=== PATIENT | female | born 1975 | race Caucasian/White ===

== ENCOUNTER 2017-07-22 16:19 | Inpatient (IN) ==
[2017-07-22] MEDS ORDERED: Vancomycin 1,500 MG in D5% in Water 250 ML IVPB ONE (18:04)
[2017-07-22] MEDS ORDERED: 0.9 % Sodium Chloride 1,000 ML IVC ONE ×2 (18:04→21:06)
--- NOTE | 2017-07-22 18:14 | Emergency Department Note ---
Disposition Clinical Impression: Cellulitis Qualifiers: Site of cellulitis: extremity Site of cellulitis of extremity: lower extremity Laterality: right Qualified Code(s): L03.115 - Cellulitis of right lower limb Disposition: Still a Patient Condition: Good Referrals: Merry Desouza MD [Primary Care Provider] - Forms: ED Satisfaction Letter Time of Disposition: 18:45 General Adult HPI - General Chief complaint: ED Extremity Injury, Lower Stated complaint: cellulitis, R/O DVT Time Seen by Provider: 07/22/17 17:03 Source: patient, other Limitations: other Nursing Notes Reviewed: Yes Vital Signs Reviewed: Yes - History of Present Illness HPI Narrative: 42 [facility] old female from [facility] presntes the ED with her client renewal specialist for complaints o RLE redness, swelling and pain. PAtient states that she twsited her ankle about 3 days ago and that the redenss started then. She is a poor historian due to her history of MRDD. [place] client renewal specialist and the notes at bedside states that she was most recently on keflex therapy for her rigth ankel swelling and cellulitis and it is getting worse and not better. Jerald has been sent to the ED for rule out DVT. 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 Jerald states there is pain when she bears weight. No loss of motor/senosry function. limited range of motion due to pain Pain Scale: 0 - Related Data Allergies Allergy/AdvReac Type Severity Reaction Status Date / Time No Known Allergies Allergy Verified 07/22/17 16:33 Review of Systems: given by client renewal specialist and notes given to client renewal specialist from [facility] Constitutional: Denies: fever, chills, weakness, weight change Eyes: Denies: eye pain, eye discharge, vision change ENT ED: Denies: ear pain, throat pain, dental pain, hearing loss, epistaxis, congestion, dysphagia Cardiovascular: Denies: chest pain, palpitations, dyspnea on exertion, edema, syncope Respiratory: Denies: cough, dyspnea, wheezes, hemoptysis, stridor Gastrointestinal: Denies: abdominal pain, nausea, vomiting, diarrhea, constipation, hematemesis, melena, hematochezia Genitourinary: Denies: dysuria, frequency, hematuria, discharge Musculoskeletal: Reports: other (right ankle pain). Denies: back pain, neck pain, arthralgia, myalgia Integumentary: Reports: rash. Denies: abrasion, lesions Neurological: Denies: headache, weakness, numbness, paresthesias, confusion, abnormal gait, vertigo Psychiatric: Denies: anxiety, depression, suicidal thoughts, homicidal thoughts , auditory hallucinations, visual hallucinations Endocrine: Denies: fatigue Hematological/Lymphatic: Denies: easy bleeding, easy bruising Allergic/Immunologic: Denies: facial swelling, urticaria Past Medical History - Past Medical History Medical history: Reports: non-contributory - Social History Smoking Status: Never smoker Alcohol use: Reports: none Drug use: Reports: none Physical Exam - General Limitations: other General appearance: in no apparent distress - Head Head exam: atraumatic, normocephalic, normal inspection - Eye Eye exam: Present: normal appearance, PERRL, EOMI - Expanded Eye Exam Pupils: Left: reactive - ENT ENT exam: normal exam, normal oropharynx, mucous membranes moist - Expanded ENT Exam External ear exam: Present: normal external inspection Mouth exam: Present: normal external inspection Teeth exam: Present: normal inspection Throat exam: Present: normal inspection - Neck Neck exam: Present: normal inspection, full ROM, trachea midline - Chest Chest inspection: Present: normal inspection, symmetric chest wall rise - Respiratory Respiratory exam: Present: normal lung sounds bilaterally - Cardiovascular Cardiovascular exam: Present: regular rate, normal rhythm, normal heart sounds - Abdominal Exam Abdominal exam: Present: soft, Non-Tender. Absent: tenderness, distention, guarding, rebound, rigidity - Female External Exam: Absent: normal external exam - Extremities Exam Extremities exam: Present: normal inspection, full ROM. Absent: tenderness, pedal edema - Expanded Upper Extremity Exam Shoulder exam: Present: normal inspection, full ROM Arm exam: Present: normal inspection, full ROM Elbow exam: Present: normal inspection, full ROM Forearm/Wrist exam: Present: normal inspection, full ROM Hand exam: Present: normal inspection, full ROM Vascular exam: Normal: capillary refill, radial pulse - Expanded Lower Extremity Exam Hip/Pelvis exam: Present: normal inspection, full ROM Upper leg exam: Present: normal inspection, full ROM Knee exam: Present: normal inspection, full ROM Lower leg exam: Present: normal inspection, full ROM Ankle exam: Present: tenderness, swelling, erythema. Absent: normal inspection , full ROM 1 - riaght ankle with mild swelling and increased erythematous changes, no flunctuant pockets or increased pain with movment of achiles tendon, appears like cellultis. (-) Homans sign 2 - riaght ankle with mild swelling and increased erythematous changes, no flunctuant pockets or increased pain with movment of achiles tendon, appears like cellultis. (-) Homans sign Foot/toe exam: Present: normal inspection, full ROM Neurovascular/Tendon exam: Absent: motor deficit, sensory deficit, tendon deficit - Back Exam Back exam: Present: normal inspection, full ROM. Absent: tenderness - Neurological Exam Neurological exam: Present: alert, oriented X3 - Expanded Neurological Exam Patient oriented to: Present: person, place, time Coma Scale Eye Opening: Spontaneous Coma Scale Motor Response: Obeys Commands Coma Scale Verbal Response: Oriented Coma Scale Total: 15 - Psychiatric Psychiatric exam: Present: normal affect, normal mood - Skin Skin exam: Present: warm, dry, intact, normal color Course Course Narrative: we will do the DVT study although my suspicion for DVT is low. More likely this is outpatinet failed therapy cellulitis and will need admission to the hospital for IX ABX. I have started IV Vancomycin at this time and baseline lab work - Reevaluation(s) Reevaluation #1: will sign out patine to night team (Kareen) she will need to be admitted to medicine for cellulitis if DVT study is negative. anticoagulation therapy with cellultis admission if DVT is (+). Time: 18:45 Vital Signs Temperature 98.7 F 07/22/17 16:30 Pulse Rate 99 07/22/17 16:30 Respiratory Rate 18 07/22/17 16:30 Blood Pressure 147/88 07/22/17 16:30 O2 Sat by Pulse Oximetry 100 07/22/17 16:30 Temperature 98.7 F 07/22/17 16:30 Pulse Rate 99 07/22/17 16:30 Respiratory Rate 18 07/22/17 16:30 Blood Pressure 147/88 07/22/17 16:30 O2 Sat by Pulse Oximetry 100 07/22/17 16:30 Oxygen Delivery Oxygen Delivery Room Air
--- NOTE | 2017-07-22 19:46 | Emergency Department Note ---
Disposition Clinical Impression: Leg swelling Cellulitis Qualifiers: Site of cellulitis: extremity Site of cellulitis of extremity: lower extremity Laterality: right Qualified Code(s): L03.115 - Cellulitis of right lower limb Fracture of proximal phalanx of great toe Qualifiers: Encounter type: initial encounter Fracture type: closed Fracture alignment: nondisplaced Laterality: right Qualified Code(s): S92.414A - Nondisplaced fracture of proximal phalanx of right great toe, initial encounter for closed fracture Disposition: Admitted As Inpatient Condition: Good Referrals: Merry Desouza MD [Primary Care Provider] - Forms: ED Satisfaction Letter Time of Disposition: 20:36 Lower Extremity Injury HPI - General Chief Complaint: ED Extremity Injury, Lower Stated Complaint: cellulitis, R/O DVT Time Seen by Provider: 07/22/17 17:03 Source: patient, other Limitations: other - Related Data Home Medications Medication Instructions Recorded Confirmed Acetaminophen [Tylenol] 650 mg PO Q4H PRN 07/22/17 07/22/17 Acetylcysteine 600 mg PO TID 07/22/17 07/22/17 [H-Dhcioi-a-Cysteine] Cholecalciferol (Vitamin D3) 5,000 unit PO BID 07/22/17 07/22/17 [Vitamin D3] Ibuprofen [Motrin] 400 mg PO Q4H PRN 07/22/17 07/22/17 LORazepam [Ativan] 1.5 mg PO 0800,1400,199907/22/17 07/22/17 Lactulose 20 gm PO QAM 07/22/17 07/22/17 LevETIRAcetam [Keppra] 1,000 mg PO BID 07/22/17 07/22/17 LevETIRAcetam [Keppra] 500 mg PO HS 07/22/17 07/22/17 Levocarnitine [Carnitor] 990 mg PO TID 07/22/17 07/22/17 Levothyroxine [Synthroid] 125 mcg PO QAM 07/22/17 07/22/17 Loperamide HCl [Anti-Diarrheal] 2 mg PO PER PKG DI PRN MDD 10 mg 07/22/17 Loxapine Succinate [Loxapine] 50 mg PO QAM 07/22/17 07/22/17 Loxapine Succinate [Loxapine] 100 mg PO QPM 07/22/17 07/22/17 Mag Hydrox/Al Hydrox/Simeth 30 ml PO Q4H PRN 07/22/17 07/22/17 [Antacid Suspension] Magnesium Hydroxide [Milk of 2,400 mg PO Q72H PRN 07/22/17 07/22/17 Magnesia] Multivitamin [Multi-Day Vitamins] 1 each PO DAILY 07/22/17 07/22/17 Sertraline [Zoloft] 200 mg PO QAM 07/22/17 07/22/17 Valproic Acid Oral Soln [Depakene 1,500 mg PO BID 07/22/17 07/22/17 Oral Soln] carBAMazepine [Tegretol] 200 mg PO HS 07/22/17 07/22/17 carBAMazepine [Tegretol] 400 mg PO BID 07/22/17 07/22/17 Allergies Allergy/AdvReac Type Severity Reaction Status Date / Time No Known Allergies Allergy Verified 07/22/17 16:33 Constitutional: Denies: fever, chills, weakness, weight change Eyes: Denies: eye pain, eye discharge, vision change ENT ED: Denies: ear pain, throat pain, dental pain, hearing loss, epistaxis, congestion, dysphagia Cardiovascular: Denies: chest pain, palpitations, dyspnea on exertion, edema, syncope Respiratory: Denies: cough, dyspnea, wheezes, hemoptysis, stridor Gastrointestinal: Denies: abdominal pain, nausea, vomiting, diarrhea, constipation, hematemesis, melena, hematochezia Genitourinary: Denies: dysuria, frequency, hematuria, discharge Musculoskeletal: Reports: other (right ankle pain). Denies: back pain, neck pain, arthralgia, myalgia Integumentary: Reports: rash. Denies: abrasion, lesions Neurological: Denies: headache, weakness, numbness, paresthesias, confusion, abnormal gait, vertigo Psychiatric: Denies: anxiety, depression, suicidal thoughts, homicidal thoughts , auditory hallucinations, visual hallucinations Endocrine: Denies: fatigue Hematological/Lymphatic: Denies: easy bleeding, easy bruising Allergic/Immunologic: Denies: facial swelling, urticaria Past Medical History - Past Medical History Medical history: Reports: non-contributory - Social History Smoking Status: Never smoker Alcohol use: Reports: none Drug use: Reports: none Physical Exam - General Limitations: other General appearance: in no apparent distress Course Course Narrative: Patient seen and examined the time of arrival to my shift. Patient was signed out by the daytime physician Dr. Shira Gauthier. Detailed review the presentation symptoms medical intervention and history were discussed in detail. She is currently in a group on secondary to MRDD. Patient has lower extremity swelling and redness concerning for superficial cellulitis or erysipelas. [place] Ashley has history of picking at her skin. She also rolled her ankle. Imaging of the ankle is negative with bruising noted in the foot and toe. Imaging of the right foot be added on. Labs including CBC chemistry lactic acid ordered. First dose of IV vancomycin be given for failed outpatient treatment of cellulitis. DVT study is still pending. Otherwise patient's vital signs are stable no other acute pathology. Lungs are clear heart is regular abdomen is soft patient is nontoxic in presentation speaking in full sentences with no other visible signs of trauma or injury. Admission process will be completed once workup is resulted - Reevaluation(s) Reevaluation #1: DVT study is negative. Patient has uncomplicated cellulitis that failed outpatient management. Because of her mental status as well as a failed outpatient treatment admission process will be completed. Hospitalist paged at this time Time: 20:20 Reevaluation #2: Patient discussed with the hospitalist Dr. macdonald. Detailed review the presentation symptoms medical history and findings on x-ray imaging including a nondisplaced fracture were discussed. Requested to have patient start on Zosyn and to have podiatry consult. Dr. Schwab sessions via phone and recommended nonweightbearing and a postsurgical shoe and outpatient evaluation if needed. No other concerns or issues noted. Patient observed in emergency room until admission process is completed. Time: 21:14 Vital Signs Temperature 98.7 F 07/22/17 16:30 Pulse Rate 99 07/22/17 16:30 Respiratory Rate 18 07/22/17 16:30 Blood Pressure 147/88 07/22/17 16:30 O2 Sat by Pulse Oximetry 100 07/22/17 16:30 Temperature 98.7 F 07/22/17 16:30 Pulse Rate 99 07/22/17 16:30 Respiratory Rate 18 07/22/17 16:30 Blood Pressure 147/88 07/22/17 16:30 O2 Sat by Pulse Oximetry 100 07/22/17 16:30 Oxygen Delivery Oxygen Delivery Room Air Extremity Injury, Lower - MDM Narrative Medical decision making narrative: Cellulitis - Medical Records Medical records reviewed: Yes I reviewed the patient's medical records. - Lab Data Lab results reviewed: Yes I reviewed the patient's lab results. - Radiology Data Radiology results reviewed: Yes I reviewed the patient's radiology results. Imaging of the right ankle and right foot are negative for acute pathology DVT study is negative.
[2017-07-22 19:47] LABS: Basophils % 0.4 %; Eosinophils # 0.4 K/mcL (0.0-0.6); Eosinophils % 4.7 %; Hematocrit 36.1 % (35.3-44.9); Hemoglobin 11.4 g/dL (11.5-15.4); Immature Granulocytes % 0.4 % (0-4); Lymphocytes % 26.1 %; Mean Corpuscular HGB Conc 31.6 g/dL (31.6-35.5); Mean Corpuscular Hemoglobin 29.8 pg (28.0-33.3); Mean Corpuscular Volume 94.3 fL (83.0-100.0); Mean Platelet Volume 12.5 fL (9.4-12.4); Monocytes % 12.8 %; Neutrophils # 4.3 K/mcL (1.6-8.9); Platelet Count 174 K/mcL (140-400); Red Blood Count 3.83 M/mcL (3.82-4.97); Red Cell Distribution Width 13.7 % (11.5-14.5); Segmented Neutrophils % 55.6 %
[2017-07-22 20:02] LABS: Alanine Aminotransferase 524 Units/L (0-55); Albumin 2.9 g/dL (3.5-5.0); Albumin/Globulin Ratio 0.8 (1.1-2.2); Alkaline Phosphatase 88 Units/L (38-126); Aspartate Amino Transferase 236 Units/L (5-34); BUN/Creatinine Ratio 30 (6-26); Blood Urea Nitrogen 19 mg/dL (7-20); Calcium 8.8 mg/dL (8.6-10.8); Carbon Dioxide 27 mEq/L (19-29); Chloride 104 mEq/L (98-109); Globulin 3.5 g/dL (2.4-3.5); Glucose 128 mg/dL (70-99); Osmolality,Calculated 296 (280-300); Potassium 4.1 mEq/L (3.5-4.5); Sodium 141 mEq/L (136-145); Total Protein 6.4 g/dL (6.0-8.3); eGFR For African Americans > 60 (> 60); eGFR For Non-African Americans > 60 (> 60)
[2017-07-22 20:03] LABS: Bilirubin,Total < 0.2 mg/dL (0.2-1.2)
[2017-07-22] MEDS ORDERED: Piperacillin/Tazobactam 3.375 GM in D5% in Water (Mini-Bag+) 100 ML IVPB ONE (21:06)
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
[2017-07-22] MEDS ORDERED: Ondansetron 4 MG/2 ML VIAL IVP PRN (22:35)
[2017-07-22] MEDS ORDERED: Naloxone 0.4 MG/ML INJ IVP PRN (22:35)
[2017-07-22] MEDS ORDERED: MOM Conc 10 ML UD.LIQ PO PRN ×2 (22:45)
[2017-07-22] MEDS ORDERED: Vancomycin 1,500 MG in D5% in Water 250 ML IVPB SCH (23:00)
[2017-07-22] MEDS ORDERED: *HR* Morphine 2 MG/ML SYRINGE IVP PRN (23:09)
[2017-07-23] MEDS: 0.9 % Sodium Chloride 1,000 ML IVC SCH ×2 (00:22→06:50)
[2017-07-23] MEDS: carBAMazepine 200 MG TABLET PO SCH ×3 (00:26→22:10)
[2017-07-23 01:20] LABS: Basophils % 0.3 %; Eosinophils # 0.3 K/mcL (0.0-0.6); Eosinophils % 4.2 %; Hematocrit 34.8 % (35.3-44.9); Hemoglobin 11.1 g/dL (11.5-15.4); Immature Granulocytes % 0.6 % (0-4); Immature Platelets 9.8 % (1.1-6.1); Lymphocytes # 2.4 K/mcL (0.6-4.6); Lymphocytes % 35.1 %; Mean Corpuscular HGB Conc 31.9 g/dL (31.6-35.5); Mean Corpuscular Hemoglobin 29.8 pg (28.0-33.3); Mean Corpuscular Volume 93.5 fL (83.0-100.0); Mean Platelet Volume 12.3 fL (9.4-12.4); Monocytes % 13.9 %; Neutrophils # 3.1 K/mcL (1.6-8.9); Platelet Count 173 K/mcL (140-400); Red Blood Count 3.72 M/mcL (3.82-4.97); Red Cell Distribution Width 13.7 % (11.5-14.5); Segmented Neutrophils % 45.9 %
[2017-07-23 01:28] LABS: INR 1.1; Prothrombin Time 12.1 Seconds (9.4-12.1)
[2017-07-23 01:34] LABS: Alanine Aminotransferase 437 Units/L (0-55); Albumin 2.8 g/dL (3.5-5.0); Albumin/Globulin Ratio 0.9 (1.1-2.2); Alkaline Phosphatase 80 Units/L (38-126); Aspartate Amino Transferase 164 Units/L (5-34); BUN/Creatinine Ratio 27 (6-26); Bilirubin,Total 0.2 mg/dL (0.2-1.2); Blood Urea Nitrogen 16 mg/dL (7-20); Calcium 8.3 mg/dL (8.6-10.8); Carbon Dioxide 27 mEq/L (19-29); Chloride 104 mEq/L (98-109); Globulin 3.2 g/dL (2.4-3.5); Glucose 111 mg/dL (70-99); Osmolality,Calculated 286 (280-300); Potassium 4.4 mEq/L (3.5-4.5); Sodium 137 mEq/L (136-145); eGFR For African Americans > 60 (> 60); eGFR For Non-African Americans > 60 (> 60)
[2017-07-23] MEDS: Ibuprofen 400 MG TABLET PO SCH ×4 (01:56→18:26)
[2017-07-23] MEDS ORDERED: levETIRAcetam 250 MG TABLET PO SCH (02:00)
[2017-07-23 06:17] LABS: INR 1.1; Prothrombin Time 12.1 Seconds (9.4-12.1)
[2017-07-23] MEDS: Famotidine 20 MG/2 ML VIAL IVP SCH ×2 (06:36→18:26)
[2017-07-23] MEDS: Piperacillin/Tazobactam 3.375 GM in D5% in Water (Mini-Bag+) 100 ML IVPB SCH ×3 (06:38→21:45)
[2017-07-23] MEDS: levETIRAcetam 250 MG TABLET PO SCH ×4 (06:38→20:27)
[2017-07-23] MEDS: *HR* Heparin 5,000 UNIT/ML VIAL SQ SCH ×3 (06:38→20:24)
[2017-07-23 06:44] LABS: Hemoglobin A1C 5.4 %
[2017-07-23] MEDS ORDERED: Mag Hydrox/Al Hydrox/Simeth 30 ML UDC PO PRN (06:45)
[2017-07-23] MEDS: Vancomycin 1,500 MG in D5% in Water 250 ML IVPB SCH ×2 (08:20→18:26)
[2017-07-23] MEDS: Multivit/Ca/Min/Fe/FA 1 TAB TABLET PO SCH (08:33)
[2017-07-23] MEDS: Valproic Acid Oral Soln 250 MG/5 ML UDC PO SCH ×2 (08:34→21:46)
[2017-07-23] MEDS: *HR* LORazepam 1 MG TABLET PO SCH ×3 (08:36→20:25)
[2017-07-23] MEDS: LOXAPINE SUCCINATE 50 MG PO SCH (08:42)
[2017-07-23] MEDS ORDERED: Sulfamethoxazole/Trimeth DS 1 EACH TABLET PO SCH (09:30)
[2017-07-23 11:27] LABS: Hepatitis A Antibody IgM Nonreactive (Nonreactive); Hepatitis B Core IgM Nonreactive (Nonreactive); Hepatitis B Surface Antigen Nonreactive (Nonreactive); Hepatitis C Virus Antibody Nonreactive (Nonreactive)
[2017-07-23] MEDS: *HR* Acetylcysteine 20% 600 MG/3 ML ORAL SYRINGE PO SCH ×3 (11:50→21:46)
--- NOTE | 2017-07-23 13:06 | Venous Imaging Report ---
LE Venous Duplex Patient Name:Ashley Dewitt Order Number:[id number] Procedure Date:07/22/2017 Date:1975Age:42 yrs Gender:Female Location:[facility] ED Room #: ER5 Warp Placer:Sarahy Mayen RDCS Referring MD:Shira Gauthier DO Reading MD:Harshil Tovar MD Primary Indications:r/o DVT Secondary Indications: Impressions: Right lower extremity: normal superficial and deep exam. Recommendations: After imaging the patient returned to their room. Gave vascular preliminary results to Dr. Noriega in emergency department on 07/22/2017 at 20:05. Test completed on 07/22/2017 at 7:56:00 pm. Findings Venous Duplex Results: Right: Venous imaging of the lower extremity reveals full patency and normal vessel compressibility of the right distal iliac, right common femoral, right superficial femoral, right popliteal, right posterior tibial, right peroneal, right great saphenous and right lesser saphenous. Doppler signals in the evaluated veins were normal. Left: Venous imaging of the lower extremity reveals full patency and normal vessel compressibility of the left common femoral. Doppler signals in the evaluated veins were normal. Prior Study: No prior study available for comparison. Lower Extremity Venous Duplex Side Vein Compress Spontaneous Flow Augment Diameter (cm) Depth (cm) Right Distal Iliac Normal Yes Phasic Yes Right Common Femoral Normal Yes Phasic Yes Right Superficial Femoral Normal Yes Phasic Yes Right Popliteal Normal Yes Phasic Yes Right Posterior Tibial Normal Yes Phasic Yes Right Peroneal Normal Yes Phasic Yes Right Great Saphenous Normal Yes Phasic Yes Right Lesser Saphenous Normal Yes Phasic Yes Left Common Femoral Normal Yes Phasic Yes Updated by Harshil Tovar MD on 07/23/2017 1:00:08 PM electronically signed on 07/23/2017 1:00:19 PM with status of Final
--- NOTE | 2017-07-23 15:45 | Podiatry Consult Note ---
Date of Encounter: 07/23/17 Time of Encounter: 12:30 Assessment and Plan (1) Cellulitis Current visit: Yes Status: Acute Assessment: Cellulitis of right lower extremity Plan: There is no obvious entry point or open ulceration Cellulitis area is marked does not extend into or across joint space of fractured toe therefore there is limited suspicion that there is a direct relation of the cellullitis to the fracture There are small ulcerations noted to mid calf which are draining a scant serous fluid, but these likely came after edema started Continue antibiotic therapy Please apply adaptic to small ulcerated areas of calf, 4x4 and wrap leg with SHANA for compression. Elevate when patient allows We will continue to follow if any further issues arise At this time, we can follow her toe fracture on a outpatient basis- patient is non compliant with non weight bearing - so will order a post operative shoe and allow ambulation. Qualifiers: Site of cellulitis: extremity Site of cellulitis of extremity: lower extremity Laterality: right Qualified Code(s): L03.115 - Cellulitis of right lower limb (2) Fracture of proximal phalanx of great toe Current visit: Yes Status: Acute Qualifiers: Encounter type: initial encounter Fracture type: closed Fracture alignment: nondisplaced Laterality: right Qualified Code(s): S92.414A - Nondisplaced fracture of proximal phalanx of right great toe, initial encounter for closed fracture History of Present Illness HPI: Ms. Dewitt is a 42 year old female from a nursing home with a PMH of MRDD, seizure disorder, hypothyroidism. Patient presented to [facility] with complaints of RLE right foot pain, redness, and swelling for the past 3 days. She recently took Keflex for right foot cellulitis however it has worsened. There is also a non displaced fracture of the right great toe. Patient is a poor historian. She reports that "a ghost broke her toe and grinded the ankle" she is unsure when the toe was broken and unsure of when the redness to her leg started. Patient denies any n/v/fls. Patient was admitted and started on IV antibiotic therapy. Ankle X-Ray 07/22/17 18:02 IMPRESSION: No acute osseous abnormality of the right ankle. D/ / Ketan Nicolas MD / Ketan Nicolas MD Interpreting Provider: Ketan Nicolas MD Foot X-Ray 07/22/17 19:48 IMPRESSION: 1. Acute, nondisplaced intra-articular fracture through the base of the proximal phalanx of the 1st toe. 2. Diffuse soft tissue edema most pronounced dorsally. D/ / Phillip Almazan MD / Phillip Almazan MD Interpreting Provider: Phillip Almazan MD Past Med Surg Social Fam HX - Past Medical History Medical history: non-contributory, seizures Psychiatric history: bipolar, schizophrenia, other (MRDD) - Past Surgical History Surgical History: other (brain) - Social History Smoking Status: Never smoker Smokeless Tobacco Status: Yes Alcohol use: none Drug use: none Medications and Allergies Acetaminophen [Tylenol] 650 mg PO Q4H PRN 07/22/17 [History] Acetylcysteine [C-Mocdxh-j-Cysteine] 600 mg PO TID 07/22/17 [History] Cholecalciferol (Vitamin D3) [Vitamin D3] 5,000 unit PO BID 07/22/17 [History] Ibuprofen [Motrin] 400 mg PO Q4H PRN 07/22/17 [History] LORazepam [Ativan] 1.5 mg PO 0800,1400,2000 07/22/17 [History] Lactulose 20 gm PO QAM 07/22/17 [History] LevETIRAcetam [Keppra] 1,000 mg PO BID 07/22/17 [History] LevETIRAcetam [Keppra] 500 mg PO HS 07/22/17 [History] Levocarnitine [Carnitor] 990 mg PO TID 07/22/17 [History] Levothyroxine [Synthroid] 125 mcg PO QAM 07/22/17 [History] Loperamide HCl [Anti-Diarrheal] 2 mg PO PER PKG DI PRN MDD 10 mg 07/22/17 [ History] Loxapine Succinate [Loxapine] 50 mg PO QAM 07/22/17 [History] Loxapine Succinate [Loxapine] 100 mg PO QPM 07/22/17 [History] Mag Hydrox/Al Hydrox/Simeth [Antacid Suspension] 30 ml PO Q4H PRN 07/22/17 [ History] Magnesium Hydroxide [Milk of Magnesia] 2,400 mg PO Q72H PRN 07/22/17 [History] Multivitamin [Multi-Day Vitamins] 1 each PO DAILY 07/22/17 [History] Sertraline [Zoloft] 200 mg PO QAM 07/22/17 [History] Valproic Acid Oral Soln [Depakene Oral Soln] 1,500 mg PO BID 07/22/17 [History] carBAMazepine [Tegretol] 200 mg PO HS 07/22/17 [History] carBAMazepine [Tegretol] 400 mg PO BID 07/22/17 [History] 3 Allergy/AdvReac Type Severity Reaction Status Date / Time No Known Allergies Allergy Verified 07/22/17 16:33 All Systems Reviewed: A 10-system review of systems was performed and is negative for pertinent findings except as documented above in the HPI. Physical Exam - Constitutional Vitals: Temp Pulse Resp BP Pulse Ox 98.2 F 86 16 131/83 95 07/23/17 07:34 07/23/17 07:34 07/23/17 07:34 07/23/17 07:34 07/23/17 07:34 Exam: General Examination: CONSTITUTIONAL: Alert, disoriented conversation. EXTREMITIES: CFT 3 seconds all toes. Toes are pallored bilaterally however there is warmth to toes and palpable pulses Edema +2 right +1 left and pedal pulses palpable DP/PT SKIN: Marked erythema and edema of the right lower extremity.. Has not progressed past the original markings. There are small areas of serous drainage noted to calf of right leg. These findings are consistent with cellulitis. NEUROLOGIC: Intact sensation to light touch MUSCULOSKELETAL: X-ray shows evidence of a nondisplaced closed fracture of the right great toe. There is a linear pattern of ecchymosis across the IP joint of the right great toe. There is no erythema or edema surrounding the toe or joint space. There is no pain to palpation. There is no limited range of motion of the toe. Free ROM at MTP joint. Results - Labs Result Diagrams: 07/23/17 01:12 07/23/17 01:12 Labs: Abnormal lab results RBC 3.72 M/mcL (3.82-4.97) L 07/23/17 01:12 Hgb 11.1 g/dL (11.5-15.4) L 07/23/17 01:12 Hct 34.8 % (35.3-44.9) L 07/23/17 01:12 Immature Plt Fraction 9.8 % (1.1-6.1) H 07/23/17 01:12 BUN/Creatinine Ratio 27 (6-26) H 07/23/17 01:12 Glucose 111 mg/dL (70-99) H 07/23/17 01:12 Calcium 8.3 mg/dL (8.6-10.8) L 07/23/17 01:12 AST 164 Units/L (5-34) H 07/23/17 01:12 ALT 437 Units/L (0-55) H 07/23/17 01:12 Albumin 2.8 g/dL (3.5-5.0) L 07/23/17 01:12 Albumin/Globulin Ratio 0.9 (1.1-2.2) L 07/23/17 01:12 TSH 5.488 mcIU/mL (0.350-4.840) H 07/23/17 03:34 All other labs normal. Consult Discharge Plan - Plan Referrals: Merry Desouza MD [Primary Care Provider] -
--- NOTE | 2017-07-23 16:14 | Internal Med Progress Note ---
Date of Encounter: 07/23/17 Time of Encounter: 14:00 - Assessment and plan (1) Cellulitis Current Visit: Yes Status: Acute Assessment and plan: Continue current antibiotics. Monitor vital signs. Keep right lower extremity elevated. Compression bandage. Moderate risk for complications. Qualifiers: Site of cellulitis: extremity Site of cellulitis of extremity: lower extremity Laterality: right Qualified Code(s): L03.115 - Cellulitis of right lower limb (2) Fracture of proximal phalanx of great toe Current Visit: Yes Status: Acute Assessment and plan: Podiatry has evaluated patient. Recommend postoperative shoe as patient not compliant with nonweightbearing. Qualifiers: Encounter type: initial encounter Fracture type: closed Fracture alignment: nondisplaced Laterality: right Qualified Code(s): S92.414A - Nondisplaced fracture of proximal phalanx of right great toe, initial encounter for closed fracture (3) Cognitive developmental delay Current Visit: Yes Status: Chronic Assessment and plan: Continue home medications. (4) Hypothyroidism Current Visit: Yes Status: Chronic Assessment and plan: On levothyroxine. TSH is slightly elevated. Will increase levothyroxine dosage Qualifiers: Hypothyroidism type: unspecified Qualified Code(s): E03.9 - Hypothyroidism , unspecified (5) Seizure disorder Current Visit: Yes Status: Chronic Assessment and plan: Continue Keppra and Tegretol (6) DVT prophylaxis Current Visit: Yes Status: Acute Assessment and plan: With subcutaneous heparin (7) Transaminitis Current Visit: Yes Status: Acute Assessment and plan: Liver enzymes are trending down. Viral serologies negative. Liver ultrasound shows hepatic steatosis without any gallbladder disease. - Subjective Interval history: Patient continues to have extensive right lower extremity swelling and erythema. Unchanged since admission. Also has pain in right foot. Has been ambulating by hopping. No fever or chills reported. - Constitutional Vitals: Temp Pulse Resp BP Pulse Ox 98.2 F 86 16 131/83 95 07/23/17 07:34 07/23/17 07:34 07/23/17 07:34 07/23/17 07:34 07/23/17 07:34 General appearance: Present: cooperative, mild distress, pleasant, obese, answers questions appropriately - Neck Neck exam general surgery: Present: supple, trachea midline. Absent: lymphadenopathy - Respiratory Respiratory exam: Present: CTAB. Absent: accessory muscle use, rales, rhonchi, wheezes - Cardiovascular Cardiovascular exam: Present: RRR, +S1, +S2. Absent: diastolic murmur, gallop, rubs, systolic murmur - GI/Abdominal GI/Abdominal exam: Present: normal bowel sounds, soft, no peritoneal signs. Absent: distended, tenderness - Extremities Exam Extremities exam: Present: tenderness, warm, radial pulses palpable and symmetrical. Absent: calf tenderness, cyanotic, pedal edema Additional comments: Circumferential Erythema involving the right lower extremity from just below the knee to the ankle. Tenderness and warmth to palpation. Internal Medicine: Result - Labs CBC & Chem 7: 07/23/17 01:12 07/23/17 01:12 - ABG Interpretation ABG results: PT/INR, D-dimer PT 12.1 Seconds (9.4-12.1) 07/23/17 03:34 - Impressions Impressions Abdomen Ultrasound 07/23/17 10:00 IMPRESSION: Hepatic steatosis. No biliary ductal dilatation. No acute abnormality of the gallbladder D/ / Jhonatan Gan MD / Jhonatan Gan MD Interpreting Provider: Jhonatan Gan MD Consult Discharge Plan - Plan Referrals: Merry Desouza MD [Primary Care Provider] -
[2017-07-23] MEDS ORDERED: LOXAPINE SUCCINATE 100 MG PO SCH (18:00)
[2017-07-24] MEDS: Ibuprofen 400 MG TABLET PO SCH ×3 (00:48→11:47)
[2017-07-24] MEDS: Piperacillin/Tazobactam 3.375 GM in D5% in Water (Mini-Bag+) 100 ML IVPB SCH ×2 (05:21→14:18)
[2017-07-24] MEDS: Famotidine 20 MG/2 ML VIAL IVP SCH (05:23)
[2017-07-24] MEDS: *HR* Heparin 5,000 UNIT/ML VIAL SQ SCH ×2 (05:23→14:11)
[2017-07-24] MEDS: levETIRAcetam 250 MG TABLET PO SCH (08:18)
[2017-07-24] MEDS: Valproic Acid Oral Soln 250 MG/5 ML UDC PO SCH (08:19)
[2017-07-24] MEDS: Multivit/Ca/Min/Fe/FA 1 TAB TABLET PO SCH (08:19)
[2017-07-24] MEDS: Vancomycin 1,500 MG in D5% in Water 250 ML IVPB SCH (08:19)
[2017-07-24] MEDS: *HR* Acetylcysteine 20% 600 MG/3 ML ORAL SYRINGE PO SCH ×2 (08:19→14:39)
[2017-07-24] MEDS: *HR* LORazepam 1 MG TABLET PO SCH ×2 (08:20→14:17)
[2017-07-24] MEDS: carBAMazepine 200 MG TABLET PO SCH (08:21)
[2017-07-24] MEDS: LOXAPINE SUCCINATE 50 MG PO SCH (08:21)
[2017-07-24 10:33] VITALS: BP 137/84
--- NOTE | 2017-07-24 14:08 | Discharge Summary ---
Date of Encounter: 07/24/17 Time of Encounter: 14:08 - Discharge Diagnosis (1) Cellulitis Priority: Primary Status: Acute Qualifiers: Site of cellulitis: extremity Site of cellulitis of extremity: lower extremity Laterality: right Qualified Code(s): L03.115 - Cellulitis of right lower limb (2) Fracture of proximal phalanx of great toe Priority: Secondary Status: Acute Qualifiers: Encounter type: initial encounter Fracture type: closed Fracture alignment: nondisplaced Laterality: right Qualified Code(s): S92.414A - Nondisplaced fracture of proximal phalanx of right great toe, initial encounter for closed fracture (3) Cognitive developmental delay Priority: Secondary Status: Chronic (4) Hypothyroidism Priority: Secondary Status: Chronic Qualifiers: Hypothyroidism type: unspecified Qualified Code(s): E03.9 - Hypothyroidism , unspecified (5) Seizure disorder Priority: Secondary Status: Chronic (6) DVT prophylaxis Priority: Secondary Status: Acute (7) Transaminitis Priority: Secondary Status: Acute - Discharge Medications Prescriptions: Clindamycin HCl [Cleocin HCl] 150 mg PO QID #48 capsule Clindamycin HCl [Cleocin HCl] 300 mg PO QID #48 capsule Lactobacillus [Culturelle] 1 each PO BID #12 cap.sprink Levothyroxine [Synthroid] 150 mcg PO 0630 #30 tablet Home Medications: Acetaminophen [Tylenol] 650 mg PO Q4H PRN 07/22/17 [History] Acetylcysteine [Q-Zotihd-b-Cysteine] 600 mg PO TID 07/22/17 [History] Cholecalciferol (Vitamin D3) [Vitamin D3] 5,000 unit PO BID 07/22/17 [History] Ibuprofen [Motrin] 400 mg PO Q4H PRN 07/22/17 [History] LORazepam [Ativan] 1.5 mg PO 0800,1400,2000 07/22/17 [History] Lactulose 20 gm PO QAM 07/22/17 [History] LevETIRAcetam [Keppra] 1,000 mg PO BID 07/22/17 [History] LevETIRAcetam [Keppra] 500 mg PO HS 07/22/17 [History] Levocarnitine [Carnitor] 990 mg PO TID 07/22/17 [History] Loperamide HCl [Anti-Diarrheal] 2 mg PO PER PKG DI PRN MDD 10 mg 07/22/17 [ History] Loxapine Succinate [Loxapine] 50 mg PO QAM 07/22/17 [History] Loxapine Succinate [Loxapine] 100 mg PO QPM 07/22/17 [History] Mag Hydrox/Al Hydrox/Simeth [Antacid Suspension] 30 ml PO Q4H PRN 07/22/17 [ History] Magnesium Hydroxide [Milk of Magnesia] 2,400 mg PO Q72H PRN 07/22/17 [History] Multivitamin [Multi-Day Vitamins] 1 each PO DAILY 07/22/17 [History] Sertraline [Zoloft] 200 mg PO QAM 07/22/17 [History] Valproic Acid Oral Soln [Depakene Oral Soln] 1,500 mg PO BID 07/22/17 [History] carBAMazepine [Tegretol] 200 mg PO HS 07/22/17 [History] carBAMazepine [Tegretol] 400 mg PO BID 07/22/17 [History] Clindamycin HCl [Cleocin HCl] 150 mg PO QID #48 capsule 07/24/17 [Rx] Clindamycin HCl [Cleocin HCl] 300 mg PO QID #48 capsule 07/24/17 [Rx] Lactobacillus [Culturelle] 1 each PO BID #12 cap.sprink 07/24/17 [Rx] Levothyroxine [Synthroid] 150 mcg PO 0630 #30 tablet 07/24/17 [Rx] Allergies/Adverse Reactions: 3 Allergy/AdvReac Type Severity Reaction Status Date / Time No Known Allergies Allergy Verified 07/22/17 16:33 Date of admission: 07/23/17 06:29 Primary care physician: Merry Desouza Consults: 07/23/17 09:18 Consult to Podiatry [CONS] Routine Consulting Provider: Podiatry [facility] Reason for Consult: right foot fracture Call Completed: No Consult to Mixing Tank Operator [CONS] Routine Reason for SW Consult: Discharge planning, from [facility]. 07/24/17 09:53 Consult to Occupational Therapy [CONS] Routine Comment: Evaluate, develop and implement POC Reason for Consult: Right foot fracture Consult to Physical Therapy [CONS] Routine Comment: Evaluate, develop and implement POC Reason for Consult: Right foot fracture Discharging clinician: Michael Johnson Anticipated date of discharge: 07/24/17 - Patient Status Disposition: Home, Self-Care Condition: Good Functional capacity at discharge: uses cane/walker (recommend to avoid weightbearing on right foot) Overall status at discharge: patient is progressing back to baseline - Discharge Instructions Instructions: Cellulitis (DC) Follow Up With: Merry Desouza MD [Primary Care Provider] - (in 1-2 weeks Will see at the [facility]. Thank you) Sessions,Brandon Watters DPM [Partnered Physician] - 08/07/17 12:45 pm (in 1-2 weeks) - Diet and Activity Activity: other (Avoid weightbearing on right foot) Diet: advance to your usual diet Hospital course: Ms. Dewitt is a 42 year old female patient with a history of MRDD, seizure disorder, hypothyroidism was hospitalized here with right leg cellulitis that had not improved even after she started taking oral antibiotics. During evaluation here in the ER, foot x-ray was done which showed fracture of the proximal phalanx of the great toe. Podiatry was consulted and they recommended conservative management and to avoid weightbearing on the foot. They did not feel that it had any radiation to cellulitis the patient had. Patient's cellulitis was mostly in the lower leg up to the ankle. She was treated with IV antibiotics and compressive bandages along with limb elevation. Her cellulitis improved with these measures. Currently patient is stable to be discharged home with oral antibiotics to complete treatment course. Her TSH level is elevated and so we increased her levothyroxine dosage. She also had an elevation in liver enzymes. Ultrasound of the liver showed patient had hepatic steatosis. Hepatic viral panel was negative. Liver enzymes are now improving. She can follow up with primary care provider and maybe refer to GI for further evaluation and management. Patient is advised to keep her leg elevated and to use compressive bandages and be nonweightbearing on her foot. However, she has had trouble following these orders given her underlying MRDD. She has therefore been provided with a postoperative boot. - Time Spent with Patient Total time spent providing and/or coordinating discharge services: Greater than 30 minutes (40 min) - Constitutional Vitals: Temp Pulse Resp BP Pulse Ox 98.5 F 101 16 137/84 95 07/24/17 10:23 07/24/17 10:23 07/24/17 10:23 07/24/17 10:23 07/24/17 10:23 General appearance: Present: cooperative, A&O X 3, pleasant, obese, answers questions appropriately - Neck Neck exam general surgery: Present: supple, trachea midline. Absent: lymphadenopathy - Respiratory Respiratory exam: Present: CTAB. Absent: accessory muscle use, rales, rhonchi, wheezes - Cardiovascular Cardiovascular exam: Present: RRR, +S1, +S2. Absent: diastolic murmur, gallop, rubs, systolic murmur - GI/Abdominal GI/Abdominal exam: Present: normal bowel sounds, soft, no peritoneal signs. Absent: distended, tenderness - Extremities Exam Extremities exam: Present: tenderness (right foot), warm, radial pulses palpable and symmetrical. Absent: calf tenderness, cyanotic, pedal edema Additional comments: erythema and swelling involving the right foot compared to yesterday. Less confluent. no open wounds or sores. No discharge noted. - Neurological Exam Neurological exam: Present: alert, oriented X3, no focal deficits. Absent: facial droop, speech deficit - Skin Skin exam: Present: dry, erythema (as above), intact
[2017-07-24] MEDS ORDERED: Aminoglycoside Consult 1 EACH MC ONE (16:09)
[2017-07-24] MEDS ORDERED: Famotidine 20 MG TABLET PO SCH (21:00)
== END 2017-07-24 16:10 | disposition home or self-care (01) | DRG 383 ==
LOC: 3ANU 16:19 → EMEROO 16:19 → 3ANU 22:17
PROVIDERS: ADMIT Internal Medicine; ATTEND Internal Medicine

== ENCOUNTER 2019-03-15 08:19 | Observation (INO) ==
[2019-03-15 09:55] LABS: Alanine Aminotransferase 19 Units/L (7-52); Albumin/Globulin Ratio 1.7 (1.1-2.2); Alkaline Phosphatase 65 Units/L (34-104); Aspartate Amino Transferase 13 Units/L (13-39); BUN/Creatinine Ratio 21 (6-26); Bilirubin,Total 0.3 mg/dL (0.3-1.0); Blood Urea Nitrogen 12 mg/dL (6-20); Calcium 9.5 mg/dL (8.6-10.3); Carbamazepine (Tegretol) < 1 mcg/mL (4-12); Carbon Dioxide 29 mEq/L (23-29); Chloride 105 mEq/L (98-107); Globulin 2.4 g/dL (2.4-3.5); Glucose 116 mg/dL (70-105); Osmolality,Calculated 285 (280-300); Potassium 3.8 mEq/L (3.5-5.1); Sodium 137 mEq/L (136-145); Total Protein 6.4 g/dL (6.4-8.9); eGFR For Non-African Americans > 60 (> 60)
[2019-03-15 10:39] LABS: Hematocrit 42.6 % (35.3-44.9); Hemoglobin 13.9 g/dL (11.5-15.4); Mean Corpuscular HGB Conc 32.6 g/dL (31.6-35.5); Mean Corpuscular Hemoglobin 28.3 pg (28.0-33.3); Mean Corpuscular Volume 86.6 fL (83.0-100.0); Mean Platelet Volume 13.1 fL (9.4-12.4); Platelet Count 242 K/mcL (140-400); Red Blood Count 4.92 M/mcL (3.82-4.97); Red Cell Distribution Width 13.5 % (11.5-14.5)
[2019-03-15 10:45] LABS: Eosinophils # 0.4 K/mcL (0.0-0.6); Lymphocytes # 1.3 K/mcL (0.6-4.6); Monocytes # 0.2 K/mcL (0.0-1.3); Neutrophils # 7.4 K/mcL (1.6-8.9); Platelet Estimate Normal (Normal)
[2019-03-15 10:46] LABS: Reactive Lymphocytes Present (Not Present)
[2019-03-15 10:47] LABS: Bilirubin,Urine Negative (Negative); Blood,Urine Small (Negative); Clarity,Urine Clear (Clear); Color,Urine Yellow (Yellow); Glucose,Urine (UA) Normal (Normal); Ketones,Urine Negative (Negative); Leukocyte Esterase,Urine Large (Negative); Nitrite,Urine Negative (Negative); PH,Urine 6.5 pH Units (5.0-8.0); Protein,Urine Negative (Neg-Trace); Specific Gravity,Urine 1.011 (1.010-1.025); Urobilinogen,Urine Normal (Normal)
[2019-03-15 10:51] LABS: Bacteria,Urine Few per hpf (None-Few); Hyaline Casts,Urine None Seen per lpf (None-Few); Squamous Epithelial Cell,Urine Many per lpf (None-Few); WBC,Urine 30-50 per hpf (0-3)
[2019-03-15 11:02] LABS: Amphetamine Screen,Urine Negative ng/mL (Cutoff=1000); Barbiturate Screen,Urine Negative ng/mL (Cutoff=200); Benzodiazepines Screen,Urine Negative ng/mL (Cutoff=200); Cannabinoid Screen,Urine Negative ng/mL (Cutoff = 50); Cocaine Screen,Urine Negative ng/mL (Cutoff= 300); Opiate Screen,Urine Negative ng/mL (Cutoff=300); Phencyclidine Screen,Urine Negative ng/mL (Cutoff=25)
--- NOTE | 2019-03-15 11:28 | Emergency Department Note ---
Disposition Clinical Impression: Epileptic seizure Qualifiers: Epilepsy type: unspecified Intractability: not intractable Status epilepticus: without status epilepticus Qualified Code(s): G40.909 - Epilepsy, unspecified, not intractable, without status epilepticus Disposition: Admitted As Inpatient Condition: Good Time of Disposition: 21:00 Seizure HPI - General Chief Complaint: ED Seizure Stated Complaint: seizure Time Seen by Provider: 03/15/19 08:22 Source: patient, EMS, other Limitations: no limitations Nursing Notes Reviewed: Yes Vital Signs Reviewed: Yes - History of Present Illness HPI Narrative: 44 yo female presents emergency Department after likely seizure. Patient has a history of bipolar disorder, schizoaffective disorder, anxiety and depression. Patient has a history of epilepsy, she is currently taking Trileptal for treatment of her seizure. She has previously taken Depakote, Keppra, Tegretol and various other antiepileptics however she is often noncompliant. She is now living in a residential. 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 Per the child care group leader the patient was postictal after this event today. She did not have loss of, and control of her bowel or bladder. Did not bite her tongue. - Related Data Home Medications Medication Instructions Recorded Confirmed Acetaminophen [Tylenol] 650 mg GTUBE Q4H PRN 07/22/17 03/16/19 Ibuprofen [Motrin] 400 mg PO Q4H PRN 07/22/17 03/16/19 Levocarnitine [Carnitor] 990 mg PO TID 07/22/17 03/16/19 Loperamide HCl [Anti-Diarrheal] 2 mg PO AD PRN MDD 16MG/DAY 07/22/17 03/16/19 Magnesium Hydroxide [Milk of 2,400 mg PO Q72H PRN 07/22/17 03/16/19 Magnesia] Sertraline [Zoloft] 200 mg PO QAM 07/22/17 03/16/19 Albuterol Neb [Proventil Neb] 2.5 mg IH Q4H PRN 03/16/19 03/16/19 Aripiprazole Lauroxil [Aristada] 882 mg IM Q4W 03/16/19 03/16/19 Carbamide Peroxide [Ear Wax Drops] 3 drop BOTH EARS AD PRN 03/16/19 03/16/19 Colloidal Oatmeal [Aveeno Soothing 1 packet TP DAILY PRN 03/16/19 03/16/19 Bath] Diazepam [Diastat Acudial] 10 mg RC DAILY PRN 03/16/19 03/16/19 LORazepam [Ativan] 0.5 mg PO TID 03/16/19 03/16/19 LORazepam [Ativan] 1 mg PO TID 03/16/19 03/16/19 Lactulose [Enulose] 20 gm PO QAM 03/16/19 03/16/19 Lidocaine Patch [Lidoderm 5% patch] 1 patch TP DAILY PRN 03/16/19 03/16/19 Lovastatin [Mevacor] 20 mg PO HS 03/16/19 03/16/19 Loxapine Succinate [Loxapine] 50 mg PO QAM 03/16/19 03/16/19 Loxapine Succinate [Loxapine] 100 mg PO QPM 03/16/19 03/16/19 Multivit,Th Iron,Other Min 1 tab PO DAILY 03/16/19 03/16/19 [Therems-M] Naltrexone HCl 50 mg PO BID 03/16/19 03/16/19 Non-Formulary Medication 30 ml PO Q4H PRN 03/16/19 03/16/19 Selenium Sulfide 1 appl TP DAILY PRN 03/16/19 03/16/19 Previous Rx's Medication Instructions Recorded Levothyroxine [Synthroid] 150 mcg PO 0630 #30 tablet 07/24/17 levETIRAcetam [Keppra] 1,000 mg PO Q12HR 30 Days #240 03/16/19 tablet Allergies Allergy/AdvReac Type Severity Reaction Status Date / Time No Known Allergies Allergy Verified 07/22/17 16:33 All systems ED: reviewed and negative except as stated. Review of Systems: As Per HPI Past Medical History - Past Medical History Attestation: Yes The following information was validated with the patient. Source: patient Medical history: Reports: non-contributory, seizures Surgical history: Reports: other (brain) Psychiatric history: Reports: bipolar, schizophrenia, other - Social History Smoking Status: Never smoker Smokeless Tobacco Status: Yes Alcohol use: Reports: none Drug use: Reports: none Physical Exam General: Alert and in no acute distress Skin: Warm, dry, intact Head: Normocephalic and atraumatic Neck: Supple, trachea midline and no tenderness Cardiovascular: RRR, no murmur, normal perfusion Respiratory: CTAB, no wheezing, cough, or respiratory distress Musculoskeletal: Normal strength, no tenderness, swelling or deformity GI: Soft, nontender, nondistended. Bowel sounds present Neuro: A&O to person, place, time and situation. No focal deficits noted on exam Psychiatric: cooperative and appropriate mood and affect. - General Limitations: no limitations General appearance: alert, in no apparent distress Course Vital Signs Temperature 98.2 F 03/15/19 08:33 Pulse Rate 90 03/15/19 08:33 Respiratory Rate 18 03/15/19 08:33 Blood Pressure 164/92 03/15/19 08:33 O2 Sat by Pulse Oximetry 97 03/15/19 08:33 Temperature 97.6 F 03/16/19 15:09 Pulse Rate 104 03/16/19 15:09 Respiratory Rate 16 03/16/19 15:09 Blood Pressure 160/94 03/16/19 15:09 O2 Sat by Pulse Oximetry 96 03/16/19 15:09 Oxygen Delivery Oxygen Delivery Room Air Seizure - MDM Narrative Medical decision making narrative: 42-year-old female presents emergency Department with concerns of possible seizures. Patient has been on Keppra, Tegretol, Depakote in the past. She is unsure of who she follows in [place] for neurology. Last seizure was one week ago. I spoke with the neurology PA who recommended admission to the [facility] for further evaluation of her seizures and recommended that they would start antiepileptics while in the hospital. Patient comfortable with this plan. - Medical Records Medical records reviewed: Yes I reviewed the patient's medical records. - Lab Data Lab results reviewed: Yes I reviewed the patient's lab results. Result diagrams: 03/16/19 02:51 03/16/19 02:51 Lab Results 03/15/19 03/15/19 Range/Units 09:22 09:22 WBC 9.2 (4.3-11.1) K/mcL RBC 4.92 (3.82-4.97) M/mcL Hgb 13.9 (11.5-15.4) g/dL Hct 42.6 (35.3-44.9) % MCV 86.6 (83.0-100.0) fL MCH 28.3 (28.0-33.3) pg MCHC 32.6 (31.6-35.5) g/dL RDW 13.5 (11.5-14.5) % Plt Count 242 (140-400) K/mcL MPV 13.1 H (9.4-12.4) fL Seg Neutrophils % 80.0 % Lymphocytes % 14.0 % Monocytes % 2.0 % Eosinophils % 4.0 % Neutrophils # 7.4 (1.6-8.9) K/mcL Lymphocytes # 1.3 (0.6-4.6) K/mcL Monocytes # 0.2 (0.0-1.3) K/mcL Eosinophils # 0.4 (0.0-0.6) K/mcL Reactive Lymphocytes Present A (Not Present) Platelet Estimate Normal (Normal) Large Platelets (Not Present) Sodium 137 (136-145) mEq/L Potassium 3.8 (3.5-5.1) mEq/L Chloride 105 (98-107) mEq/L Carbon Dioxide 29 (23-29) mEq/L BUN 12 (6-20) mg/dL Creatinine 0.58 L (0.60-1.20) mg/dL Est GFR ( Amer) > 60 (> 60) Est GFR (Non-Af Amer) > 60 (> 60) BUN/Creatinine Ratio 21 (6-26) Glucose 116 H (70-105) mg/dL Calculated Osmolality 285 (280-300) Calcium 9.5 (8.6-10.3) mg/dL Total Bilirubin 0.3 (0.3-1.0) mg/dL AST 13 (13-39) Units/L ALT 19 (7-52) Units/L Alkaline Phosphatase 65 (34-104) Units/L Serum Total Protein 6.4 (6.4-8.9) g/dL Albumin 4.0 (3.5-5.7) g/dL Globulin 2.4 (2.4-3.5) g/dL Albumin/Globulin Ratio 1.7 (1.1-2.2) Carbamazepine < 1 L (4-12) mcg/mL - EKG Data EKG attestation: Yes I reviewed and interpreted this EKG. EKG results narrative: Sinus rhythm with a rate of 86 without evidence of STEMI or other dysrhythmia, Q TC 441, QRS 93.
[2019-03-15] MEDS ORDERED: *HR* LORazepam 2 MG/ML VIAL IVP STA (12:00)
[2019-03-15] MEDS ORDERED: Naloxone 0.4 MG/ML INJ IVP PRN (12:03)
--- NOTE | 2019-03-15 14:06 | Neurology - Consult Note ---
Date of Encounter: 03/15/19 Time of Encounter: 14:02 Assessment and Plan (1) Seizures Current Visit: Yes Status: Acute Neurology consulted for seizures Patient has a known history of a seizure disorder and follows with a neurologist in [place] She is prescribed oxcarbazepine a.m. but is noncompliant with medication regimen Has failed a ED medications in the past due to noncompliance Reports to seizure events in the last week. Most recent this morning with tonic-clonic activity and a postictal phase. No return of seizure activity since admission. Oxcarbazepine level drawn and found to be less than 1 Exam findings do not reveal any concerns for BUILDING MANAGER infection, UDS negative for substance abuse, chemistry panel unremarkable. Neuro exam is nonfocal and nonlateralizing. Suspect most likely that she is having seizures due to medication noncompliance or ineffective treatment dose or some combination thereof. As this time we will stop oxcarbazepine. Agree with Ativan as needed for breakthrough seizures. Continue with seizure precautions. We will obtain an EEG. Continue medical and supportive care. For ease of treatment we will start Keppra IVPB 1000mg x1 dose then Keppra PO 1000mg BID thereafter. She is refusing Dilantin, Depakote and Oxcarbazepine at this time. Neurology will continue to follow tomorrow. History of Present Illness Chief complaint: seizures HPI: Ms. Dewitt is a 44 year old female with a PMH of bipolar, schizophrenia and seizures. She presents to [facility] after experiencing a seizure this morning. The patient is a poor historian and unable to provide much detail. However, there is a graphic art sales representative from [facility] who notes that all of a sudden the patient became unresponsive and "stiff all over with her arms and legs shaking ". Shortly after the seizure-like activity the patient was found to be confused and lethargic for approximately 10 minutes and then progressed back to baseline status. Again, she has a known seizure disorder with failed therapy which is presumed to because by medication noncompliance. The patient herself reports that in the past she has been on Keppra and Dilantin and Depakote and notes that Keppra was the only medication that helped but she quit taking it as she states "due to bad snakes in the medication causing seizures ". Apparently, she follows with a neurologist in [place] but is unclear who the neurologist may be. The senior care graphic art sales representative notes that the patient has been taking o xcarbazepine for the last year but most recently has decided that she no longer wishes to take it. Additionally, they reported a seizure-like activity last week as well. They deny any other neurological symptoms including headaches, dizziness, visual disturbances, dysphagia, dysarthria, head/neck pain, fevers, chills, flulike symptoms, unilateral weakness or numbness and tingling. Neurology will follow to evaluate procedures. Past Med Surg Social Fam HX - Past Medical History Medical history: non-contributory, seizures Psychiatric history: bipolar, schizophrenia, other - Past Surgical History Surgical History: other (brain) - Social History Smoking Status: Never smoker Smokeless Tobacco Status: Yes Alcohol use: none Drug use: none - Family History Mother Hx Family Neurologic Disorders: Yes (Seizures) Medications and Allergies Acetaminophen [Tylenol] 650 mg PO Q4H PRN 07/22/17 [History] Acetylcysteine [O-Siftyi-q-Cysteine] 600 mg PO TID 07/22/17 [History] Cholecalciferol (Vitamin D3) [Vitamin D3] 5,000 unit PO BID 07/22/17 [History] Ibuprofen [Motrin] 400 mg PO Q4H PRN 07/22/17 [History] LORazepam [Ativan] 1.5 mg PO 0800,1400,2000 07/22/17 [History] Lactulose 20 gm PO QAM 07/22/17 [History] LevETIRAcetam [Keppra] 1,000 mg PO BID 07/22/17 [History] LevETIRAcetam [Keppra] 500 mg PO HS 07/22/17 [History] Levocarnitine [Carnitor] 990 mg PO TID 07/22/17 [History] Loperamide HCl [Anti-Diarrheal] 2 mg PO PER PKG DI PRN MDD 10 mg 07/22/17 [History] Loxapine Succinate [Loxapine] 50 mg PO QAM 07/22/17 [History] Loxapine Succinate [Loxapine] 100 mg PO QPM 07/22/17 [History] Mag Hydrox/Al Hydrox/Simeth [Antacid Suspension] 30 ml PO Q4H PRN 07/22/17 [History] Magnesium Hydroxide [Milk of Magnesia] 2,400 mg PO Q72H PRN 07/22/17 [History] Multivitamin [Multi-Day Vitamins] 1 each PO DAILY 07/22/17 [History] Sertraline [Zoloft] 200 mg PO QAM 07/22/17 [History] Valproic Acid Oral Soln [Depakene Oral Soln] 1,500 mg PO BID 07/22/17 [History] carBAMazepine [Tegretol] 200 mg PO HS 07/22/17 [History] carBAMazepine [Tegretol] 400 mg PO BID 07/22/17 [History] Clindamycin HCl [Cleocin HCl] 150 mg PO QID #48 capsule 07/24/17 [Rx] Clindamycin HCl [Cleocin HCl] 300 mg PO QID #48 capsule 07/24/17 [Rx] Lactobacillus [Culturelle] 1 each PO BID #12 cap.sprink 07/24/17 [Rx] Levothyroxine [Synthroid] 150 mcg PO 0630 #30 tablet 07/24/17 [Rx] Ciprofloxacin HCl/Dexameth [Ciprodex Otic Suspension] 4 drop OT BID 10 Days #1 bottle 12/25/17 [Rx] Allergy/AdvReac Type Severity Reaction Status Date / Time No Known Allergies Allergy Verified 07/22/17 16:33 ROS unobtainable: due to mental status All Systems: The remainder of the systems were reviewed and are negative Physical Examination - Vital Signs Vital Signs: Initial Vital Signs Temp Pulse Resp BP Pulse Ox 98.2 F 90 18 164/92 97 03/15/19 08:33 03/15/19 08:33 03/15/19 08:33 03/15/19 08:33 03/15/19 08:33 - Exam Exam: Examination: General Examination: *CONSTITUTIONAL: Alert to self and somewhat aware that she is in a hospital in [place] but otherwise she is disoriented. No acute distress *GENERAL APPEARANCE OF PATIENT appears healthy and well groomed *EYES: pupils equal, round, reactive to light and accommodation, conjunctiva clear without masses or ulcerations, fundi normal. *CARDIOVASCULAR no peripheral edema, distal temperature normal, dorsalis pedis pulses normal. Musculoskeletal: *GAIT AND STATION normal, with normal Romberg testing, no abnormalities such as broad base gait or spasticity *ASSESSMENT OF MUSCLE STRENGTH IN THE UPPER AND LOWER EXTREMITIES bilateral deltoid, bicep, tricep, imaging system administrator strength, hip flexors ,anterior tibialis, dorsoflexion of the foot 5/5 *MUSCLE TONE IN THE UPPER AND LOWER EXTREMITIES normal. No abnormal movements, fasciculations or atrophy identified. Neurological: *ORIENTATION to person *RECURRENT AND REMOTE MEMORY intact *ATTENTION AND CONCENTRATION are normal *LANGUAGE FUNCTION no significant aphasia or dysarthia was noted. *FUND OF KNOWLEDGE aware of current events, past history, vocabulary *MENTAL attention span and concentration normal. *CN II optic fundi were normal, no papilledema noted. *CN III,IV, PERRLA extraocular eye movements were full, no nystagmus and no ptosis noted. *CN V shows normal sensation and jaw opens symmetrically. *CN VII shows normal facial movement symmetrically, upper and lower bilaterally. *CN VIII shows no significant hearing loss on exam *CN IX,,X palate elevated symmetrically *CN XI normal strength in the sternocleidomastoid muscles, symmetrical shoulder shrugging. *CN XII tongue protruded in the midline, with normal strength and movement. *SENSORY EXAMINATION light touch intact *REFLEXES: deep tendon reflexes were normal and symmetrical , grade 2/4 diffusely, no pathological reflexes were noted. *CEREBELLAR TESTING normal finger to nose, heel/knee/monroy *PAIN LEVEL 0/10 Results - Laboratory Findings CBC and BMP: 03/15/19 09:22 03/15/19 09:22 Abnormal lab findings: Abnormal lab results MPV 13.1 fL (9.4-12.4) H 03/15/19 09:22 Present (Not Present) A 03/15/19 09:22 0.58 mg/dL (0.60-1.20) L 03/15/19 09:22 Glucose 116 mg/dL (70-105) H 03/15/19 09:22 Small (Negative) H 03/15/19 Unknown Ur Leukocyte Esterase Large (Negative) H 03/15/19 Unknown 3-5 per hpf (0-3) H 03/15/19 Unknown 30-50 per hpf (0-3) H 03/15/19 Unknown Ur Squamous Epith Cells Many per lpf (None-Few) H 03/15/19 Unknown Carbamazepine < 1 mcg/mL (4-12) L 03/15/19 09:22 Consult Discharge Plan - Plan Referrals: Merry Desouza MD [Primary Care Provider] -
--- NOTE | 2019-03-15 14:27 | Internal Med History&Physical ---
Date of Encounter: 03/15/19 Time of Encounter: 14:00 Internal Medicine - H&P: HPI Chief complaint: Seizures this am History of present illness: Ms. Dewitt is a 44 year old female with pmh of bipolar disorder, schizophrenia, seizures presenting with complaints of witnessed seizure today at the senior living today. Patient is known to be non compliant with her seizure medications, and says someone stopped giving her her keppra. Per senior living staff she refuses to take her seizure meds. She was reported to have generalized shaking all over with unresponsiveness that lasted for about 5-10minutes. Denies any tongue biting or urinary incontinence. Reports that she was confused afterwards. She was reported to have had a seizure last week as well. She denies any fevers ch ills or any other acute symptoms In the ER, Neurology was consulted and she is being admitted for further management Past Med Surg Social Fam HX - Past Medical History Medical history: non-contributory, seizures Psychiatric history: bipolar, schizophrenia, other - Past Surgical History Surgical History: other (brain) - Social History Smoking Status: Never smoker Smokeless Tobacco Status: Yes Alcohol use: none Drug use: none - Family History Mother Hx Family Neurologic Disorders: Yes (Seizures) Internal Medicine - H&P: Meds Acetaminophen [Tylenol] 650 mg PO Q4H PRN 07/22/17 [History] Acetylcysteine [V-Xodzqa-t-Cysteine] 600 mg PO TID 07/22/17 [History] Cholecalciferol (Vitamin D3) [Vitamin D3] 5,000 unit PO BID 07/22/17 [History] Ibuprofen [Motrin] 400 mg PO Q4H PRN 07/22/17 [History] LORazepam [Ativan] 1.5 mg PO 0800,1400,2000 07/22/17 [History] Lactulose 20 gm PO QAM 07/22/17 [History] LevETIRAcetam [Keppra] 1,000 mg PO BID 07/22/17 [History] LevETIRAcetam [Keppra] 500 mg PO HS 07/22/17 [History] Levocarnitine [Carnitor] 990 mg PO TID 07/22/17 [History] Loperamide HCl [Anti-Diarrheal] 2 mg PO PER PKG DI PRN MDD 10 mg 07/22/17 [History] Loxapine Succinate [Loxapine] 50 mg PO QAM 07/22/17 [History] Loxapine Succinate [Loxapine] 100 mg PO QPM 07/22/17 [History] Mag Hydrox/Al Hydrox/Simeth [Antacid Suspension] 30 ml PO Q4H PRN 07/22/17 [H istory] Magnesium Hydroxide [Milk of Magnesia] 2,400 mg PO Q72H PRN 07/22/17 [History] Multivitamin [Multi-Day Vitamins] 1 each PO DAILY 07/22/17 [History] Sertraline [Zoloft] 200 mg PO QAM 07/22/17 [History] Valproic Acid Oral Soln [Depakene Oral Soln] 1,500 mg PO BID 07/22/17 [History] carBAMazepine [Tegretol] 200 mg PO HS 07/22/17 [History] carBAMazepine [Tegretol] 400 mg PO BID 07/22/17 [History] Clindamycin HCl [Cleocin HCl] 150 mg PO QID #48 capsule 07/24/17 [Rx] Clindamycin HCl [Cleocin HCl] 300 mg PO QID #48 capsule 07/24/17 [Rx] Lactobacillus [Culturelle] 1 each PO BID #12 cap.sprink 07/24/17 [Rx] Levothyroxine [Synthroid] 150 mcg PO 0630 #30 tablet 07/24/17 [Rx] Ciprofloxacin HCl/Dexameth [Ciprodex Otic Suspension] 4 drop OT BID 10 Days #1 bottle 12/25/17 [Rx] Allergy/AdvReac Type Severity Reaction Status Date / Time No Known Allergies Allergy Verified 07/22/17 16:33 All Systems PM: A 10-system review of systems was performed and is negative for pertinent findings except as documented above in the HPI. - Constitutional Constitutional: no chills, no fever(s), no night sweats - EENT Eyes: no change in vision, no discharge, no pain, no photophobia Ears: no ear discharge, no ear pain, no tinnitus Nose, mouth and throat: no dysphagia, no nasal discharge, no neck pain, no sore throat - Cardiovascular Cardiovascular ROS IM: no chest pain, no diaphoresis, no dyspnea, no lightheadedness, no palpitations, no syncope - Respiratory Respiratory: no cough, no dyspnea, no wheezing, no excessive phlegm production - Gastrointestinal Gastrointestinal: no abdominal pain, no diarrhea, no hematemesis, no hematochezia, no melena, no nausea, no vomiting - Genitourinary Genitourinary: no change in urinary stream, no dysuria, no flank pain, no hematuria - Musculoskeletal Musculoskeletal ROS IM: no numbness, no tingling - Integumentary Integumentary IM: no rash, no unusual bruising - Neurological Neurological ROS: convulsions, no confusion, no focal weakness, no numbness, no tingling, no tremor(s) - Hematologic/Lymphatic Hematologic/Lymphatic: no easy bruising - Constitutional Vitals: Temp Pulse Resp BP Pulse Ox 98.2 F 90 20 163/94 98 03/15/19 08:33 03/15/19 13:53 03/15/19 13:53 03/15/19 13:53 03/15/19 13:53 Exam: NAD. Has some tangential thought processes - Head Head exam: Present: atraumatic, normocephalic - Eye Eye exam: Present: PERRL, conjuntiva pink, sclera anicteric Pupils: Present: PERRL - Neck Neck exam general surgery: Present: supple, trachea midline. Absent: lymphadenopathy - Respiratory Respiratory exam: Present: CTAB. Absent: accessory muscle use, rales, rhonchi, wheezes - Cardiovascular Cardiovascular exam: Present: RRR, +S1, +S2. Absent: diastolic murmur, gallop, rubs, systolic murmur - GI/Abdominal GI/Abdominal exam: Present: normal bowel sounds, soft, no peritoneal signs. Absent: distended, tenderness - Extremities Exam Extremities exam: Present: warm, radial pulses palpable and symmetrical. Absent: calf tenderness, cyanotic, pedal edema - Neurological Exam Neurological exam: Present: CN II-XII intact, oriented X3, no focal deficits. Absent: pronater drift, facial droop, speech deficit - Skin Skin exam: Present: dry, intact Internal Med - H&P Results - Labs CBC & Chem 7: 03/15/19 09:22 03/15/19 09:22 Labs: Short CBC 03/15/19 Range/Units 09:22 WBC 9.2 (4.3-11.1) K/mcL Hgb 13.9 (11.5-15.4) g/dL Hct 42.6 (35.3-44.9) % Plt Count 242 (140-400) K/mcL Neutrophils # 7.4 (1.6-8.9) K/mcL BMP 03/15/19 09:22 Sodium 137 Potassium 3.8 Chloride 105 Carbon Dioxide 29 BUN 12 Creatinine 0.58 L Glucose 116 H Calcium 9.5 Liver Function 03/15/19 Range/Units 09:22 Total Bilirubin 0.3 (0.3-1.0) mg/dL AST 13 (13-39) Units/L ALT 19 (7-52) Units/L Alkaline Phosphatase 65 (34-104) Units/L Albumin 4.0 (3.5-5.7) g/dL Urine 03/15/19 Range/Units Unknown Urine Color Yellow (Yellow) Urine Clarity Clear (Clear) Urine pH 6.5 (5.0-8.0) pH Units Ur Specific [place] 1.011 (1.010-1.025) Urine Protein Negative (Neg-Trace) mg/dL Urine Glucose (UA) Normal (Normal) mg/dL - Assessment and Plan (1) Seizures Current Visit: Yes Status: Acute Assessment and plan: Pt had witnessed generalized seizures. She appears to be on lorazepam, keppra, oxcarbazepine at the senior living which she has been refusing neuro consulted and said to hold off on loading with IV keppra and will manage her medications accordingly Obatin EEG (2) Hypothyroidism Current Visit: Yes Status: Acute Assessment and plan: Continue levothyroxine Qualifiers: Qualified Code(s): E03.9 - Hypothyroidism, unspecified (3) Schizophrenia Current Visit: Yes Status: Acute Assessment and plan: On loxapine Qualifiers: Qualified Code(s): F20.9 - Schizophrenia, unspecified (4) DVT prophylaxis Current Visit: Yes Status: Acute Assessment and plan: Heparin sc - Time Spent With Patient Total time spent is greater than 50% in coordination of care (as documented) at patient's floor/unit and/or counseling patient:
[2019-03-15] MEDS: LEVOCARNITINE 990 MG PO SCH ×2 (14:58→20:52)
[2019-03-15] MEDS ORDERED: levETIRAcetam 1,000 MG in 0.9 % Sodium Chloride 100 ML IVPB ONE (15:02)
--- NOTE | 2019-03-15 16:09 | EEG/EMG/Oth Biometrics Report ---
EEG Procedure Report Date of procedure: 03/15/19 EEG Procedure: Routine EEG Procedure Note: Report: This EEG was acquired with standard international 10-20 electrode placement system with EKG recording. The Background activity during this EEG was characterized by the presence of posterior dominant alpha rhythm with best frequency up to 9 Hz. The background activity was reactive to eye openings. Sleep stages were not identified during this EEG recording. There are no electrographic seizures identified during this tracing. There are no epileptiform discharges noted. However, there was rather persistently intermittent delta slowing at the left anterior-mid temporal region. Photic stimulation produced no abnormalities. HV not performed during this study. EKG tracing showed no significant cardiac dysarrhythmia. Impression: This is an abnormal EEG due to presence of rather persistently intermittent focal slowing at the left anterior-mid temporal region. Clinical Correlation: This EEG is consistent with focal neuronal dysfunction at the left anterior-mid temporal region. This pattern can be seen in patients with focal cerebral structure abnormalities, or less likely, as an interinctal phenomenon of partial seizure disorder. Clinical correlation advised. Correlation with imaging studies may be helpful.
[2019-03-16 03:10] LABS: Basophils % 0.2 %; Eosinophils # 0.1 K/mcL (0.0-0.6); Eosinophils % 0.6 %; Hematocrit 42.8 % (35.3-44.9); Hemoglobin 13.7 g/dL (11.5-15.4); Immature Granulocytes % 0.3 % (0-4); Lymphocytes # 2.5 K/mcL (0.6-4.6); Mean Corpuscular Hemoglobin 28.3 pg (28.0-33.3); Mean Corpuscular Volume 88.4 fL (83.0-100.0); Mean Platelet Volume 13.5 fL (9.4-12.4); Monocytes # 0.9 K/mcL (0.0-1.3); Monocytes % 8.6 %; Neutrophils # 7.2 K/mcL (1.6-8.9); Platelet Count 207 K/mcL (140-400); Red Blood Count 4.84 M/mcL (3.82-4.97); Red Cell Distribution Width 13.7 % (11.5-14.5); Segmented Neutrophils % 67.3 %
[2019-03-16 03:21] LABS: BUN/Creatinine Ratio 19 (6-26); Blood Urea Nitrogen 12 mg/dL (6-20); Calcium 9.6 mg/dL (8.6-10.3); Carbon Dioxide 29 mEq/L (23-29); Chloride 103 mEq/L (98-107); Glucose 127 mg/dL (70-105); Magnesium 1.9 mg/dL (1.6-2.6); Osmolality,Calculated 287 (280-300); Phosphorous 3.2 mg/dL (2.7-4.5); Potassium 4.4 mEq/L (3.5-5.1); Sodium 138 mEq/L (136-145); eGFR For Non-African Americans > 60 (> 60)
--- NOTE | 2019-03-16 03:56 | Electrocardiograph Report ---
[place] [facility] Test Date: 2019-03-15 Pat Name: Ashley Dewitt Department: EXAM19 Room: 3A14 Gender: F Scraper Burrer: : 1975 Requested By: Raymon Gauthier Order Number: [id number] Reading MD: Trenton Diallo Measurements Intervals Armstrong Rate: 86 P: 44 CA: 129 QRS: 37 QRSD: 93 T: 32 QT: 368 QTc: 441 Interpretive Statements Sinus rhythm Electronically Signed On 03-16-2019 3:54:05 EDT by Trenton Diallo
[2019-03-16] MEDS ORDERED: levETIRAcetam 250 MG TABLET PO SCH (06:00)
[2019-03-16] MEDS: LEVOCARNITINE 990 MG PO SCH ×2 (09:35→15:52)
--- NOTE | 2019-03-16 11:12 | Neurology Progress Note ---
Date of Encounter: 03/16/19 Time of Encounter: 11:10 Assessment and Plan (1) Seizures Current Visit: Yes Status: Acute Clinically, the patient remained stable overnight. She is being seen in follow- up for seizures. She reports that she did not have any seizure events overnight. No new neurological findings on exam as the examination is nonfocal and nonlateralizing. The patient's case is rather complicated due to bipolar and schizophrenia and she is noncompliant with AEDs. She does not follow with [facility] will follow up with her neurologist in [facility]. Most recently she was on oxcarbazepine but is refusing to take this medication at this time. Her request she was placed on Keppra this admission. She reports that the Keppra provide better seizure control. At this time I will continue with the Keppra 1000 mg twice a day. Yesterday we obtained an EKG which demonstrated focal slowing in the left anterior to mid temporal lobe which may indicate presence of a structural abnormality or an anterior representation of a partial epilepsy disorder. We recommend CT imaging of the head, however, the patient is refusing CT imaging. At this time we recommend continuing with seizure precautions, Ativan as needed. Recommend follow-up with her primary neurology team. Subjective Principal diagnosis: Seizures Interval history: Patient seen in follow-up for seizures. Yesterday she was given a loading dose of Keppra and started on 1000 mg by mouth Keppra twice a day. She reports no seizures overnight. Neurologically she is intact without any further ethan rological deficits. She states that she is satisfied with taking Keppra as this is her seizure medication of choice. I discussed EEG findings and the need for CT imaging of the head without contrast to correlate the findings. However, the patient is refusing CT imaging of the head. Objective - Constitutional Vitals: Temp Pulse Resp BP Pulse Ox 98.0 F 97 16 164/94 98 03/16/19 10:34 03/16/19 10:34 03/16/19 10:34 03/16/19 10:34 03/16/19 10:34 Exam: Examination: General Examination: *CONSTITUTIONAL: Alert to self and , place and situation, no acute distress *GENERAL APPEARANCE OF PATIENT obese female but overall healthy and well groomed *EYES: pupils equal, round, reactive to light and accommodation, conjunctiva clear *CARDIOVASCULAR no peripheral edema, distal temperature normal, dorsalis pedis pulses normal. Musculoskeletal: *GAIT AND STATION normal, with normal Romberg testing, no abnormalities such as broad base gait or spasticity *ASSESSMENT OF MUSCLE STRENGTH IN THE UPPER AND LOWER EXTREMITIES bilateral deltoid, bicep, tricep, perioperative educator strength, hip flexors ,anterior tibialis, dorsoflexion of the foot 5/5 *MUSCLE TONE IN THE UPPER AND LOWER EXTREMITIES normal. No abnormal movements, fasciculations or atrophy identified. Neurological: *ORIENTATION to person *RECURRENT AND REMOTE MEMORY intact *ATTENTION AND CONCENTRATION are normal *LANGUAGE FUNCTION no significant aphasia or dysarthia was noted. *FUND OF KNOWLEDGE aware of current events, past history, vocabulary *MENTAL attention span and concentration normal. *CN II optic fundi were normal, no papilledema noted. *CN III,IV, PERRLA extraocular eye movements were full, no nystagmus and no ptosis noted. *CN V shows normal sensation and jaw opens symmetrically. *CN VII shows normal facial movement symmetrically, upper and lower bilaterally. *CN VIII shows no significant hearing loss on exam *CN IX,,X palate elevated symmetrically *CN XI normal strength in the sternocleidomastoid muscles, symmetrical shoulder shrugging. *CN XII tongue protruded in the midline, with normal strength and movement. *SENSORY EXAMINATION light touch intact *REFLEXES: deep tendon reflexes were normal and symmetrical , grade 2/4 diffusely, no pathological reflexes were noted. *CEREBELLAR TESTING normal finger to nose, heel/knee/monroy *PAIN LEVEL 0/10 Results - Laboratory Findings CBC and BMP: 03/16/19 02:51 03/16/19 02:51 Abnormal lab findings: Abnormal lab results MPV 13.5 fL (9.4-12.4) H 03/16/19 02:51 Present (Not Present) A 03/15/19 09:22 0.58 mg/dL (0.60-1.20) L 03/15/19 09:22 Glucose 127 mg/dL (70-105) H 03/16/19 02:51 Small (Negative) H 03/15/19 Unknown Ur Leukocyte Esterase Large (Negative) H 03/15/19 Unknown 3-5 per hpf (0-3) H 03/15/19 Unknown 30-50 per hpf (0-3) H 03/15/19 Unknown Ur Squamous Epith Cells Many per lpf (None-Few) H 03/15/19 Unknown Carbamazepine < 1 mcg/mL (4-12) L 03/15/19 09:22 Consult Discharge Plan - Plan Referrals: Merry Desouza MD [Primary Care Provider] -
[2019-03-16] MEDS: *HR* LORazepam 1 MG TABLET PO SCH ×2 (11:46→15:52)
--- NOTE | 2019-03-16 14:18 | Discharge Summary ---
- NOTES TO OUTPATIENT PROVIDER Notes to Outpatient Provider: Continue by mouth Keppra 1000 mg twice a day. Follow-up with Neurology as outpatient Orders not resulted at time of discharge: Pending orders 03/15/19 Culture,Urine [RM] Stat 03/16/19 02:51 Basic Metabolic Panel AM 0400 HCG,Beta,Quant.for Routine Magnesium AM 0400 Phosphorous AM 0400 Date of Encounter: 03/16/19 Time of Encounter: 10:00 - Discharge Diagnosis (1) DVT prophylaxis Priority: Secondary Status: Acute (2) Seizures Priority: Primary Status: Acute (3) Hypothyroidism Priority: Secondary Status: Acute Qualifiers: Qualified Code(s): E03.9 - Hypothyroidism, unspecified (4) Schizophrenia Priority: Secondary Status: Acute Qualifiers: Qualified Code(s): F20.9 - Schizophrenia, unspecified Hospital course: Ms. Dewitt is a 44 year old female present to ER from [facility] with seizure. Patient has known seizure history. Patient was treated with IV Keppra in the emergency room. Neurology consult saw patient. Recommend continue Keppra 1000 mg twice a day by mouth. EEG has been done, which shows focal neuronal dysfunction at the left anterior-mid temporal region, recommend CT head. CT head has been done, which shows No acute intracranial abnormality. Discussed with neurologist, will DC patient with Keppra 1000 mg by mouth twice a day. Discontinue patient's home medication oxcarbarzepine. Patient has no further seizure. Will DC patient back to [facility]. I have seen and examined the patient today. Patient is awake alert, oriented 3. Walking around in hallway. In no acute distress. Patient denies dysuria, burning, urgency, or increased frequency. Her UA shows elevated WBC, will not treat as patient is asymptomatic. Will DC patient back to [facility] and continue follow-up with PCP and neurology as outpatient. Plan discussed with patient and patient's mom. All questions were answered. Discharge discussed with: patient, family - Time Spent with Patient Total time spent providing and/or coordinating discharge services: 40 minutes Time spent: Greater than 30 minutes - Discharge Medications Prescriptions: New levETIRAcetam [Keppra] 1,000 mg PO Q12HR 30 Days #240 tablet Continued Sertraline [Zoloft] 200 mg PO QAM Ibuprofen [Motrin] 400 mg PO Q4H PRN PRN Reason: Body Aches & Pain Acetaminophen [Tylenol] 650 mg GTUBE Q4H PRN PRN Reason: Fever & Headache Loperamide HCl [Anti-Diarrheal] 2 mg PO AD PRN MDD 16MG/DAY PRN Reason: Diarrhea Magnesium Hydroxide [Milk of Magnesia] 2,400 mg PO Q72H PRN PRN Reason: Constipation Levocarnitine [Carnitor] 990 mg PO TID Levothyroxine [Synthroid] 150 mcg PO 0630 #30 tablet Albuterol Neb [Proventil Neb] 2.5 mg IH Q4H PRN PRN Reason: Shortness Of Breath/Wheezing Aripiprazole Lauroxil [Aristada] 882 mg IM Q4W Carbamide Peroxide [Ear Wax Drops] 3 drop BOTH EARS AD PRN PRN Reason: Ear Wax Colloidal Oatmeal [Aveeno Soothing Bath] 1 packet TP DAILY PRN PRN Reason: Skin Irritation Diazepam [Diastat Acudial] 10 mg RC DAILY PRN PRN Reason: Seizures Lactulose [Enulose] 20 gm PO QAM Lidocaine Patch [Lidoderm 5% patch] 1 patch TP DAILY PRN PRN Reason: Pain LORazepam [Ativan] 0.5 mg PO TID LORazepam [Ativan] 1 mg PO TID Lovastatin [Mevacor] 20 mg PO HS Loxapine Succinate [Loxapine] 50 mg PO QAM Loxapine Succinate [Loxapine] 100 mg PO QPM Multivit,Th Iron,Other Min [Therems-M] 1 tab PO DAILY Naltrexone HCl 50 mg PO BID Non-Formulary Medication 30 ml PO Q4H PRN PRN Reason: UPSET STOMACH/HEARTBURN Selenium Sulfide 1 appl TP DAILY PRN PRN Reason: DANDRUFF Discontinued OXcarbazepine [Oxcarbazepine] 300 mg PO DAILY Home Medications: Acetaminophen [Tylenol] 650 mg GTUBE Q4H PRN 07/22/17 [History] Ibuprofen [Motrin] 400 mg PO Q4H PRN 07/22/17 [History] Levocarnitine [Carnitor] 990 mg PO TID 07/22/17 [History] Loperamide HCl [Anti-Diarrheal] 2 mg PO AD PRN MDD 16MG/DAY 07/22/17 [History] Magnesium Hydroxide [Milk of Magnesia] 2,400 mg PO Q72H PRN 07/22/17 [History] Sertraline [Zoloft] 200 mg PO QAM 07/22/17 [History] Levothyroxine [Synthroid] 150 mcg PO 0630 #30 tablet 07/24/17 [Rx] Albuterol Neb [Proventil Neb] 2.5 mg IH Q4H PRN 03/16/19 [History] Aripiprazole Lauroxil [Aristada] 882 mg IM Q4W 03/16/19 [History] Carbamide Peroxide [Ear Wax Drops] 3 drop BOTH EARS AD PRN 03/16/19 [History] Colloidal Oatmeal [Aveeno Soothing Bath] 1 packet TP DAILY PRN 03/16/19 [History] Diazepam [Diastat Acudial] 10 mg RC DAILY PRN 03/16/19 [History] LORazepam [Ativan] 0.5 mg PO TID 03/16/19 [History] LORazepam [Ativan] 1 mg PO TID 03/16/19 [History] Lactulose [Enulose] 20 gm PO QAM 03/16/19 [History] Lidocaine Patch [Lidoderm 5% patch] 1 patch TP DAILY PRN 03/16/19 [History] Lovastatin [Mevacor] 20 mg PO HS 03/16/19 [History] Loxapine Succinate [Loxapine] 50 mg PO QAM 03/16/19 [History] Loxapine Succinate [Loxapine] 100 mg PO QPM 03/16/19 [History] Multivit,Th Iron,Other Min [Therems-M] 1 tab PO DAILY 03/16/19 [History] Naltrexone HCl 50 mg PO BID 03/16/19 [History] Non-Formulary Medication 30 ml PO Q4H PRN 03/16/19 [History] Selenium Sulfide 1 appl TP DAILY PRN 03/16/19 [History] levETIRAcetam [Keppra] 1,000 mg PO Q12HR 30 Days #240 tablet 03/16/19 [Rx] Allergies/Adverse Reactions: Allergy/AdvReac Type Severity Reaction Status Date / Time No Known Allergies Allergy Verified 07/22/17 16:33 Date of admission: 03/15/19 13:49 Primary care physician: Merry Desouza Consults: 03/15/19 12:06 Consult to Neurology [CONS] Routine Consulting Provider: Neurology [facility] Reason for Consult: seizures Call Completed: No 03/15/19 16:07 Consult to Interpret Exam [CONS] Routine Consulting Provider: Lisette Kang Consult to Interpret Exam: Interpret EEG Discharging clinician: Jovany Alvarenga Anticipated date of discharge: 03/16/19 - Constitutional Vitals: Temp Pulse Resp BP Pulse Ox 98.0 F 97 16 164/94 98 03/16/19 10:34 03/16/19 10:34 03/16/19 10:34 03/16/19 10:34 03/16/19 10:34 Exam: Pt is AAO x 3, in NAD HEENT: NC/AT, PERRL Neck: Supple, no JVD, no LAD Lungs: CTA b/l Heart: S1S2, RRR Abd: Soft, nontender, BS present Ext: ROM wnl, no pedal edema Neuro: No focal deficit - Patient Status Disposition: Home, Self-Care Condition: Good Functional capacity at discharge: independent ambulation Overall status at discharge: patient is back to baseline - Discharge Instructions Follow Up With: Merry Desouza MD [Primary Care Provider] - - Diet and Activity Activity: increase activity as tolerated Diet: regular diet
[2019-03-16 15:11] VITALS: BP 160/94
== END 2019-03-16 16:54 | disposition home or self-care (01) ==
LOC: EMEROOARM 08:19 → 3ANU 08:19
PROVIDERS: ADMIT Student in an Organized Health Care Education/Training Program; ATTEND Student in an Organized Health Care Education/Training Program

== ENCOUNTER 2019-12-08 11:00 | Observation (INO) ==
[2019-12-08] MEDS ORDERED: 0.9 % Sodium Chloride 1,000 ML IVC ONE (11:34)
[2019-12-08 12:12] LABS: Basophils % 0.2 %; Hematocrit 39.6 % (35.3-44.9); Hemoglobin 13.4 g/dL (11.5-15.4); Immature Granulocytes % 0.8 % (0-4); Lymphocytes # 2.3 K/mcL (0.6-4.6); Lymphocytes % 10.5 %; Mean Corpuscular HGB Conc 33.8 g/dL (31.6-35.5); Mean Corpuscular Hemoglobin 27.9 pg (28.0-33.3); Mean Corpuscular Volume 82.3 fL (83.0-100.0); Mean Platelet Volume 12.8 fL (9.4-12.4); Monocytes # 2.3 K/mcL (0.0-1.3); Monocytes % 10.5 %; Neutrophils # 17.2 K/mcL (1.6-8.9); Platelet Count 167 K/mcL (140-400); Red Blood Count 4.81 M/mcL (3.82-4.97); White Blood Count 22.1 K/mcL (4.3-11.1)
[2019-12-08] MEDS ORDERED: *HR* LORazepam 2 MG/ML VIAL IVP ONE (13:13)
[2019-12-08 13:16] LABS: Alanine Aminotransferase 11 Units/L (7-52); Albumin 3.5 g/dL (3.5-5.7); Albumin/Globulin Ratio 1.2 (1.1-2.2); Alkaline Phosphatase 56 Units/L (34-104); Aspartate Amino Transferase 12 Units/L (13-39); BUN/Creatinine Ratio 13 (6-26); Bilirubin,Direct 0.1 mg/dL (0.0-0.2); Bilirubin,Indirect 0.3 mg/dL (0.0-1.0); Bilirubin,Total 0.4 mg/dL (0.3-1.0); Blood Urea Nitrogen 7 mg/dL (6-20); Calcium 9.1 mg/dL (8.6-10.3); Carbon Dioxide 28 mEq/L (23-29); Chloride 98 mEq/L (98-107); Globulin 2.9 g/dL (2.4-3.5); Glucose 119 mg/dL (70-105); Lipase 17 Units/L (11-82); Osmolality,Calculated 279 (280-300); Potassium 3.5 mEq/L (3.5-5.1); Sodium 135 mEq/L (136-145); Total Protein 6.4 g/dL (6.4-8.9); Valproate 113 mcg/mL (50-100); eGFR For African Americans > 60 (> 60); eGFR For Non-African Americans > 60 (> 60)
[2019-12-08] MEDS ORDERED: Ondansetron 4 MG/2 ML VIAL IVP PRN (15:03)
[2019-12-08] MEDS ORDERED: Acetaminophen 325 MG TABLET PO PRN (15:03)
[2019-12-08] MEDS ORDERED: Ibuprofen 400 MG TABLET PO PRN (17:21)
[2019-12-08] MEDS ORDERED: diazePAM 10 MG/2 ML SYRINGE IVP PRN (17:21)
[2019-12-08] MEDS ORDERED: LOXAPINE SUCCINATE 100 MG PO SCH (18:00)
[2019-12-08] MEDS: Ringers Solution, Lactated 1,000 ML IVC SCH (19:00)
[2019-12-08] MEDS: LOXAPINE SUCCINATE 25 MG PO SCH (20:33)
[2019-12-08] MEDS: *HR* LORazepam 1 MG TABLET PO SCH (20:34)
[2019-12-08] MEDS: levETIRAcetam 250 MG TABLET PO SCH (20:34)
[2019-12-08] MEDS ORDERED: Divalproex (12 HR) 500 MG TABLET PO SCH (21:00)
[2019-12-08] MEDS ORDERED: *HR* LORazepam 0.5 MG TABLET PO SCH (21:00)
[2019-12-08] MEDS: Naltrexone HCl 50 MG TABLET PO SCH (21:43)
[2019-12-08] MEDS: Divalproex (12 HR) 250 MG TABLET PO SCH (21:43)
[2019-12-09] MEDS: Ringers Solution, Lactated 1,000 ML IVC SCH (01:40)
[2019-12-09] MEDS: *HR* Enoxaparin 40 MG/0.4 ML SYRINGE SQ SCH (05:50)
[2019-12-09] MEDS ORDERED: Ibuprofen 400 MG TABLET PO PRN (06:54)
[2019-12-09] MEDS ORDERED: Acetaminophen 325 MG TABLET PO PRN (06:54)
[2019-12-09] MEDS: Lactulose Oral Soln 20 GM/30 ML UDC PO SCH (09:40)
[2019-12-09] MEDS: levETIRAcetam 250 MG TABLET PO SCH ×2 (09:40→21:23)
[2019-12-09] MEDS: ARIPiprazole 5 MG TABLET PO SCH ×2 (09:40→15:35)
[2019-12-09] MEDS: *HR* LORazepam 1 MG TABLET PO SCH ×3 (09:40→21:33)
[2019-12-09] MEDS: Naltrexone HCl 50 MG TABLET PO SCH ×2 (09:40→22:30)
[2019-12-09] MEDS: Venlafaxine XR (24 HR) 150 MG CAP.ER.24H PO SCH ×2 (09:40→15:35)
[2019-12-09] MEDS: LOXAPINE SUCCINATE 25 MG PO SCH ×2 (09:41→15:35)
[2019-12-09 10:27] LABS: Hematocrit 37.5 % (35.3-44.9); Hemoglobin 12.3 g/dL (11.5-15.4); Mean Corpuscular HGB Conc 32.8 g/dL (31.6-35.5); Mean Corpuscular Hemoglobin 27.3 pg (28.0-33.3); Mean Corpuscular Volume 83.1 fL (83.0-100.0); Mean Platelet Volume 12.9 fL (9.4-12.4); Platelet Count 156 K/mcL (140-400); Red Blood Count 4.51 M/mcL (3.82-4.97); Red Cell Distribution Width 15.4 % (11.5-14.5); White Blood Count 14.6 K/mcL (4.3-11.1)
[2019-12-09 10:48] LABS: Blood Urea Nitrogen 8 mg/dL (6-20); Calcium 8.7 mg/dL (8.6-10.3); Carbon Dioxide 29 mEq/L (23-29); Chloride 106 mEq/L (98-107); Glucose 168 mg/dL (70-105); Magnesium 1.8 mg/dL (1.6-2.6); Osmolality,Calculated 292 (280-300); Potassium 3.6 mEq/L (3.5-5.1); Sodium 140 mEq/L (136-145)
[2019-12-09 11:01] LABS: BUN/Creatinine Ratio 15 (6-26); eGFR For African Americans > 60 (> 60); eGFR For Non-African Americans > 60 (> 60)
[2019-12-09] MEDS: Divalproex (12 HR) 250 MG TABLET PO SCH ×2 (11:20→21:30)
[2019-12-09] MEDS ORDERED: Naltrexone HCl 50 MG TABLET PO SCH (22:15)
[2019-12-09] MEDS ORDERED: Mag Hydrox/Al Hydrox/Simeth 30 ML UDC PO PRN (23:58)
[2019-12-10] MEDS: *HR* Enoxaparin 40 MG/0.4 ML SYRINGE SQ SCH (05:24)
[2019-12-10] MEDS: Naltrexone HCl 50 MG TABLET PO SCH ×3 (07:38→20:49)
[2019-12-10] MEDS: Venlafaxine XR (24 HR) 150 MG CAP.ER.24H PO SCH (07:52)
[2019-12-10] MEDS: Divalproex (12 HR) 250 MG TABLET PO SCH ×2 (07:52→20:49)
[2019-12-10] MEDS: ARIPiprazole 5 MG TABLET PO SCH (07:52)
[2019-12-10] MEDS: levETIRAcetam 250 MG TABLET PO SCH ×2 (07:52→20:49)
[2019-12-10] MEDS: *HR* LORazepam 1 MG TABLET PO SCH ×3 (07:52→20:49)
[2019-12-10] MEDS: Lactulose Oral Soln 20 GM/30 ML UDC PO SCH (07:52)
[2019-12-10] MEDS: LOXAPINE SUCCINATE 25 MG PO SCH ×2 (07:58→16:02)
[2019-12-10 11:16] LABS: Hematocrit 38.1 % (35.3-44.9); Hemoglobin 11.9 g/dL (11.5-15.4); Mean Corpuscular HGB Conc 31.2 g/dL (31.6-35.5); Mean Corpuscular Hemoglobin 26.6 pg (28.0-33.3); Mean Corpuscular Volume 85.2 fL (83.0-100.0); Mean Platelet Volume 13.5 fL (9.4-12.4); Platelet Count 159 K/mcL (140-400); Red Blood Count 4.47 M/mcL (3.82-4.97); Red Cell Distribution Width 15.4 % (11.5-14.5); White Blood Count 12.1 K/mcL (4.3-11.1)
[2019-12-10 11:38] LABS: BUN/Creatinine Ratio 15 (6-26); Blood Urea Nitrogen 8 mg/dL (6-20); Carbon Dioxide 32 mEq/L (23-29); Chloride 103 mEq/L (98-107); Glucose 133 mg/dL (70-105); Osmolality,Calculated 296 (280-300); Potassium 3.8 mEq/L (3.5-5.1); Sodium 143 mEq/L (136-145); eGFR For African Americans > 60 (> 60); eGFR For Non-African Americans > 60 (> 60)
[2019-12-10] MEDS ORDERED: Haloperidol Lactate 5 MG/ML VIAL IM ONE (16:44)
[2019-12-10] MEDS ORDERED: *HR* LORazepam 2 MG/ML VIAL IM STA (16:47)
[2019-12-10] MEDS ORDERED: *HR* LORazepam 1 MG TABLET PO ONE (16:50)
[2019-12-10] MEDS: Sulfamethoxazole/Trimeth DS 1 EACH TABLET PO SCH (20:49)
[2019-12-11] MEDS ORDERED: *HR* LORazepam 1 MG TABLET PO STA (06:00)
[2019-12-11] MEDS: *HR* Enoxaparin 40 MG/0.4 ML SYRINGE SQ SCH (06:07)
[2019-12-11] MEDS ORDERED: *HR* LORazepam 2 MG/ML VIAL IVP ONE (06:15)
[2019-12-11] MEDS ORDERED: *HR* LORazepam 2 MG/ML VIAL IM ONE (06:15)
[2019-12-11 07:34] VITALS: BP 136/86
[2019-12-11] MEDS: Sulfamethoxazole/Trimeth DS 1 EACH TABLET PO SCH (08:10)
[2019-12-11] MEDS: levETIRAcetam 250 MG TABLET PO SCH (08:10)
[2019-12-11] MEDS: Lactulose Oral Soln 20 GM/30 ML UDC PO SCH (08:11)
[2019-12-11] MEDS: Divalproex (12 HR) 250 MG TABLET PO SCH (08:13)
[2019-12-11] MEDS: *HR* LORazepam 1 MG TABLET PO SCH (08:13)
[2019-12-11] MEDS: Venlafaxine XR (24 HR) 150 MG CAP.ER.24H PO SCH (08:14)
[2019-12-11] MEDS: ARIPiprazole 5 MG TABLET PO SCH (08:16)
[2019-12-11] MEDS: LOXAPINE SUCCINATE 25 MG PO SCH (08:16)
[2019-12-11] MEDS: Naltrexone HCl 50 MG TABLET PO SCH (08:16)
[2019-12-11] MEDS ORDERED: Aminoglycoside Consult 1 EACH MC ONE (11:41)
== END 2019-12-11 11:42 | disposition home or self-care (01) ==
LOC: EMEROOARM 11:00 → 2ANU 11:00 → SUATTDRO 14:36 → 2ANU 15:30
PROVIDERS: ADMIT Internal Medicine; ATTEND Internal Medicine

== ENCOUNTER 2022-05-03 14:23 | Observation (INO) ==
[2022-05-03 15:08] LABS: Hematocrit 38.5 % (35.3-44.9); Hemoglobin 12.6 g/dL (11.5-15.4); Mean Corpuscular HGB Conc 32.7 g/dL (31.6-35.5); Mean Corpuscular Hemoglobin 29.4 pg (28.0-33.3); Mean Platelet Volume 12.6 fL (9.4-12.4); Platelet Count 188 K/mcL (140-400); Red Blood Count 4.28 M/mcL (3.82-4.97); Red Cell Distribution Width 13.3 % (11.5-14.5); White Blood Count 7.4 K/mcL (4.3-11.1)
[2022-05-03 16:12] LABS: Alanine Aminotransferase 15 Units/L (7-52); Albumin 3.9 g/dL (3.5-5.7); Albumin/Globulin Ratio 1.4 (1.1-2.2); Alkaline Phosphatase 56 Units/L (34-104); Aspartate Amino Transferase 15 Units/L (13-39); BUN/Creatinine Ratio 16 (6-26); Bilirubin,Indirect 0.4 mg/dL (0.0-1.0); Bilirubin,Total 0.4 mg/dL (0.3-1.0); Blood Urea Nitrogen 10 mg/dL (6-20); Calcium 7.7 mg/dL (8.6-10.3); Carbon Dioxide 29 mEq/L (23-29); Chloride 100 mEq/L (98-107); Globulin 2.7 g/dL (2.4-3.5); Glucose 154 mg/dL (70-105); Osmolality,Calculated 280 (280-300); Potassium 4.2 mEq/L (3.5-5.1); Sodium 134 mEq/L (136-145); Total Protein 6.6 g/dL (6.4-8.9); Valproate 14 mcg/mL (50-100); eGFR For African Americans > 60 (> 60); eGFR For Non-African Americans > 60 (> 60)
[2022-05-03] MEDS ORDERED: Valproic Acid INJ 1,000 MG in 0.9 % Sodium Chloride 100 ML IVPB ONE (17:30)
[2022-05-03] MEDS ORDERED: MOM Conc 10 ML UD.LIQ PO PRN (18:33)
[2022-05-03] MEDS ORDERED: Melatonin 3 MG TABLET PO PRN (18:33)
[2022-05-03] MEDS ORDERED: Acetaminophen 325 MG TABLET PO PRN (18:33)
[2022-05-03] MEDS ORDERED: Naloxone 0.4 MG/ML INJ IVP PRN (18:33)
[2022-05-03] MEDS: *HR* LORazepam 2 MG/ML VIAL IVP ONE ×2 (18:47→19:11)
[2022-05-03] MEDS ORDERED: *HR* LORazepam 2 MG/ML VIAL IVP STA (19:05)
[2022-05-03] MEDS ORDERED: levETIRAcetam 1,000 MG in 0.9 % Sodium Chloride 100 ML IVPB ONE (20:00)
[2022-05-03] MEDS: levETIRAcetam 250 MG TABLET PO SCH ×2 (21:34→21:35)
[2022-05-04 06:27] LABS: Hematocrit 38.3 % (35.3-44.9); Hemoglobin 12.3 g/dL (11.5-15.4); Mean Corpuscular HGB Conc 32.1 g/dL (31.6-35.5); Mean Corpuscular Volume 90.3 fL (83.0-100.0); Mean Platelet Volume 12.6 fL (9.4-12.4); Platelet Count 202 K/mcL (140-400); Red Blood Count 4.24 M/mcL (3.82-4.97); Red Cell Distribution Width 13.5 % (11.5-14.5); White Blood Count 9.5 K/mcL (4.3-11.1)
[2022-05-04 06:41] LABS: BUN/Creatinine Ratio 20 (6-26); Blood Urea Nitrogen 10 mg/dL (6-20); Calcium 8.4 mg/dL (8.6-10.3); Carbon Dioxide 26 mEq/L (23-29); Chloride 106 mEq/L (98-107); Glucose 109 mg/dL (70-105); Osmolality,Calculated 284 (280-300); Potassium 3.8 mEq/L (3.5-5.1); Sodium 137 mEq/L (136-145); eGFR For African Americans > 60 (> 60); eGFR For Non-African Americans > 60 (> 60)
[2022-05-04] MEDS ORDERED: *HR* LORazepam 2 MG/ML VIAL IVP PRN (07:39)
[2022-05-04] MEDS ORDERED: Valproic Acid 250 MG CAPSULE PO SCH (08:00)
[2022-05-04] MEDS: LEVOCARNITINE 330 MG PO SCH ×2 (16:05→21:25)
[2022-05-04] MEDS ORDERED: D5% in Lactated Ringers 1,000 ML IVC SCH (17:00)
[2022-05-04] MEDS: Valproic Acid INJ 500 MG in 0.9 % Sodium Chloride 100 ML IVPB SCH (17:27)
[2022-05-04] MEDS ORDERED: Loxapine Succinate [Loxapine] 25 MG Capsule PO SCH (21:00)
[2022-05-05] MEDS: Valproic Acid INJ 500 MG in 0.9 % Sodium Chloride 100 ML IVPB SCH (01:08)
[2022-05-05 01:37] LABS: Hematocrit 38.1 % (35.3-44.9); Hemoglobin 12.1 g/dL (11.5-15.4); Mean Corpuscular HGB Conc 31.8 g/dL (31.6-35.5); Mean Corpuscular Hemoglobin 28.9 pg (28.0-33.3); Mean Corpuscular Volume 91.1 fL (83.0-100.0); Mean Platelet Volume 12.5 fL (9.4-12.4); Platelet Count 200 K/mcL (140-400); Red Blood Count 4.18 M/mcL (3.82-4.97); Red Cell Distribution Width 13.3 % (11.5-14.5); White Blood Count 8.7 K/mcL (4.3-11.1)
[2022-05-05 01:50] LABS: BUN/Creatinine Ratio 34 (6-26); Blood Urea Nitrogen 21 mg/dL (6-20); Calcium 8.5 mg/dL (8.6-10.3); Carbon Dioxide 26 mEq/L (23-29); Chloride 106 mEq/L (98-107); Glucose 116 mg/dL (70-105); Osmolality,Calculated 290 (280-300); Potassium 4.2 mEq/L (3.5-5.1); Sodium 138 mEq/L (136-145); eGFR For African Americans > 60 (> 60); eGFR For Non-African Americans > 60 (> 60)
[2022-05-05 01:58] LABS: Albumin 3.3 g/dL (3.5-5.7); Albumin/Globulin Ratio 1.1 (1.1-2.2); Bilirubin,Direct 0.1 mg/dL (0.0-0.2); Bilirubin,Indirect 0.3 mg/dL (0.0-1.0); Bilirubin,Total 0.4 mg/dL (0.3-1.0); Globulin 2.9 g/dL (2.4-3.5); Magnesium 1.7 mg/dL (1.6-2.6); Phosphorous 3.9 mg/dL (2.7-4.5); Total Protein 6.2 g/dL (6.4-8.9)
[2022-05-05 02:07] LABS: Thyroid Stimulating Hormone 1.489 mcIU/mL (0.340-5.600)
[2022-05-05] MEDS ORDERED: *HR* Enoxaparin 40 MG/0.4 ML SYRINGE SQ SCH (06:00)
[2022-05-05] MEDS: LEVOCARNITINE 330 MG PO SCH ×2 (08:29→14:44)
[2022-05-05] MEDS ORDERED: Multivit/Ca/Min/Fe/FA 1 TAB TABLET PO SCH (09:00)
[2022-05-05] MEDS ORDERED: Valproic Acid INJ 500 MG in 0.9 % Sodium Chloride 100 ML IVPB SCH (09:00)
[2022-05-05] MEDS ORDERED: Venlafaxine XR (24 HR) 150 MG CAP.ER.24H PO SCH (09:00)
[2022-05-05] MEDS ORDERED: lisinopriL 10 MG TABLET PO SCH (09:00)
[2022-05-05 17:20] VITALS: BP 143/87; PULSE 93; TEMP 97.6; O2SAT 96
[2022-05-05] MEDS ORDERED: Naltrexone HCl 50 MG TABLET PO SCH (18:30)
[2022-05-05] MEDS ORDERED: Divalproex (12 HR) 250 MG TABLET PO SCH ×2 (19:00→21:00)
[2022-05-05] MEDS ORDERED: levETIRAcetam 250 MG TABLET PO SCH ×2 (19:00→21:00)
== END 2022-05-05 19:02 | disposition home or self-care (01) ==
LOC: EMEROOARM 14:23 → 2ANU 14:23 → SUATTDRO 17:49 → 2ANU 20:14
PROVIDERS: ADMIT General Practice; ATTEND Student in an Organized Health Care Education/Training Program